=== PATIENT | male | born 1945 | race Two or more races ===

== ENCOUNTER 2019-07-23 22:14 | Inpatient (IN) | payer MEDICARE, OTHER ==
[~2019-07-23] VITALS: Ht 182.9 cm; Wt 68.0 kg
[2019-07-23 22:33] LABS: BASOPHILS # (AUTO) 0.1 /CMM (0.0-0.2); BASOPHILS % (AUTO) 0.5 % (0.0-2.0); EOSINOPHILS % (AUTO) 0.4 % (0.0-6.0); HEMATOCRIT 40 % (39-51); HEMOGLOBIN 12.5 g/dL (13.5-17.5); LYMPHOCYTES # (AUTO) 2.9 /CMM (0.8-4.8); MEAN CORPUSCULAR HGB CONC 31 g/dl (31.0-36.0); MEAN CORPUSCULAR VOLUME 75 fL (80-96); MONOCYTES # (AUTO) 1.8 /CMM (0.1-1.30); MONOCYTES % (AUTO) 9.1 % (2.0-12.0); NEUTROPHILS # (AUTO) 14.4 /CMM (1.8-8.9); PLATELET COUNT (AUTO) 196 /CMM (150-450); RED BLOOD CELL COUNT(AUTO) 5.34 MIL/uL (4.5-6.0); WHITE BLOOD COUNT (AUTO) 19.2 K/uL (4.3-11.0)
--- NOTE | 2019-07-23 22:34 | NUR ---
PT AAOX3. [id number]. C/O TACHYCARDIA - 114BPM AND CHEST CONGESTION - CRACKLES. PT PLACED ON MONITOR AND PULSE OX. VSS. PT SAT 96% ON ROOM AIR. LABS COLLECTED AND SENT TO LAB. BG 167. AWATITING OTHER MD ORDERS.
[2019-07-23 22:44] LABS: CALCIUM, SERUM 8.9 mg/dL (8.5-10.1); CARBON DIOXIDE 27 mmol/L (21-32); CHLORIDE 102 mmol/L (98-107); GLUCOSE 191 mg/dL (74-106); SODIUM SERUM 139 mmol/L (136-145); UREA NITROGEN, BLOOD 34 mg/dL (7-18)
--- NOTE | 2019-07-23 22:45 | NUR ---
INF SENT TO LAB
[2019-07-23] MEDS ORDERED: VANCOMYCIN 1 GM VIAL ONE (22:58)
[2019-07-23] MEDS ORDERED: PIPERACILLIN /TAZOBACTAM 3.375 G VIAL IV ONE (22:58)
[2019-07-23] MEDS ORDERED: VANCOMYCIN 1 GM in IV D5W 250 ML IV ONE (23:00)
[2019-07-23] MEDS ORDERED: PIPERACILLIN /TAZOBACTAM 3.375 G in IV D5W 50 ML IV ONE (23:00)
[2019-07-23 23:02] LABS: ALANINE AMINOTRANSFERASE 19 U/L (12-78); ALBUMIN 3.1 g/dL (3.4-5.0); ALKALINE PHOSPHATASE 70 U/L (46-116); ASPARTATE AMINOTRANSFERASE 11 U/L (15-37); B-TYPE NATRIURETIC PEPTIDE 365 PG/ML (0-125); BILIRUBIN,DIRECT 0.1 mg/dL (0.0-0.2); BILIRUBIN,TOTAL 0.6 mg/dL (0.2-1.0); TOTAL PROTEIN, SERUM 7.3 g/dL (6.4-8.2)
--- NOTE | 2019-07-23 23:02 | NUR ---
[employer] was paged for panel call
--- NOTE | 2019-07-23 23:18 | NUR ---
[email or web address] was paged again for panel call
--- NOTE | 2019-07-23 23:22 | NUR ---
called nursing sup for bed, waiting for bed assignment
[2019-07-23] MEDS ORDERED: SIMV20TA2 GT (23:46)
[2019-07-23] MEDS ORDERED: TYL2T GT (23:46)
[2019-07-23] MEDS ORDERED: BISA10SU61 RC (23:46)
[2019-07-23] MEDS ORDERED: GABA-534 GT (23:46)
[2019-07-23] MEDS ORDERED: FAMO-131 GT (23:46)
[2019-07-23] MEDS ORDERED: GLIM1TAB GT (23:46)
[2019-07-23] MEDS ORDERED: METF-442 GT (23:46)
[2019-07-23] MEDS ORDERED: NA P133E RC (23:46)
[2019-07-23] MEDS ORDERED: ACET325T53 GT (23:46)
[2019-07-23] MEDS ORDERED: LAMO100T2 GT (23:46)
[2019-07-23] MEDS ORDERED: LISI10TA5 GT (23:46)
--- NOTE | 2019-07-23 23:48 | NUR ---
Called to give report. Nurse will call back.
[2019-07-24] VITALS (14 sets, daily range): BP systolic 76–152; BP diastolic 45–76
--- NOTE | 2019-07-24 00:40 | NUR ---
REPORT GIVEN TO ESTEVAN COLLINS FOR MICKEY
[2019-07-24] MEDS ORDERED: IV NS 0.9% 1,000 ML IV PRN (01:29)
[2019-07-24] MEDS ORDERED: ALBUTEROL SULFATE 8 GM HFA.AER.AD IH PRN (01:30)
[2019-07-24] MEDS ORDERED: Z GUARD REMEDY 2 OZ OINT TP PRN (01:30)
[2019-07-24] MEDS ORDERED: AZITHROMYCIN 250 MG TABLET GT ONE (01:30)
--- NOTE | 2019-07-24 01:45 | NUR ---
PT TRANSFERED PER ACLS PROTOCOL
--- NOTE | 2019-07-24 01:55 | NUR ---
0155 ADMITTED FROM ER 74 YEAR OLD MALE VIA GURNEY, FOR TACHYCARDIA AND CHEST CONGESTION, AND SEPSIS. AWAKE ALERT AND ABLE TO RESPOND VERBALLY. NO SIGNS OF RESPIRATORY DISTRESS NOTED. NOTED WITH PRODUCTIVE COUGHING. VITAL SIGNS TAKEN FOLLOWS B/P 126/70, HR 110S, RR 22, T- 98.1 O2 SATURATION 98% ON ROOM AIR. ADMISSION CARE RENDERED. PEG TUBE INTACT. NOTED WITH EXCORIATION ON PERIANAL AREA. BILATERAL UPPER EXTREMITIES CONTRACTED. HOB ELEVATED FOR MAX OXYGENATION. CALL LIGHT PLACED WITHIN REACH. STRICT DROPLET PRECAUTION OBSERVED.
[2019-07-24] MEDS ORDERED: ONDANSETRON HCL/PF 4 MG/2 ML VIAL IVP PRN (02:00)
[2019-07-24 02:15] LABS: BASOPHILS # (AUTO) 0.1 /CMM (0.0-0.2); BASOPHILS % (AUTO) 0.6 % (0.0-2.0); EOSINOPHILS % (AUTO) 0.2 % (0.0-6.0); HEMATOCRIT 44 % (39-51); HEMOGLOBIN 13.8 g/dL (13.5-17.5); LYMPHOCYTES # (AUTO) 2.4 /CMM (0.8-4.8); LYMPHOCYTES % (AUTO) 11.7 % (20.0-44.0); MEAN CORPUSCULAR HGB CONC 32 g/dl (31.0-36.0); MEAN CORPUSCULAR VOLUME 76 fL (80-96); MONOCYTES # (AUTO) 1.7 /CMM (0.1-1.30); MONOCYTES % (AUTO) 8.3 % (2.0-12.0); NEUTROPHILS % (AUTO) 79.2 % (43.0-81.0); PLATELET COUNT (AUTO) 206 /CMM (150-450); RED BLOOD CELL COUNT(AUTO) 5.73 MIL/uL (4.5-6.0); WHITE BLOOD COUNT (AUTO) 20.2 K/uL (4.3-11.0)
[2019-07-24 02:22] LABS: CALCIUM, SERUM 9.2 mg/dL (8.5-10.1); CREATININE 1.3 mg/dL (0.6-1.3); POTASSIUM 4.1 mmol/L (3.5-5.1)
[2019-07-24 02:30] LABS: C-REACTIVE PROTEIN 5.2 mg/dL (0.0-0.9)
[2019-07-24 02:34] LABS: ALBUMIN 3.4 g/dL (3.4-5.0); BILIRUBIN,TOTAL 0.9 mg/dL (0.2-1.0)
[2019-07-24 02:36] LABS: D-DIMER 0.37 mg/L(FEU (0.17-0.50)
--- NOTE | 2019-07-24 02:38 | NUR ---
0238 DR SHAW WAS NOTIFIED OF PATIENT CONSTANT PRODUCTIVE COUGHING WITH HR IN THE 130S. ORDER FOR ROBITUSSIN 5ML EVERY 6 HOURS PRN OBTAINED. ORDER NOTED AND CARRIED OUT. DR. SHAW ALSO CLARIFIED ROUTE OF MEDICATIONS TO VIA PEG.
[2019-07-24] MEDS: ACETAMINOPHEN 325 MG TABLET PO PRN ×3 (02:53→16:31)
--- NOTE | 2019-07-24 02:53 | NUR ---
MACHINE FINISHER NOTES PT NOTED WITH SLIGHT TEMP 100.2 COOLING MEASURES DONE. TYLENOL GIVEN ORDERED. WILL CONTINUE TO MONITOR.
[2019-07-24] MEDS: GUAIFENESIN/D-METHORPHAN HB 5 ML UDC GT PRN (02:54)
--- NOTE | 2019-07-24 04:55 | NUR ---
PARADICHLOROBENZENE TENDER NOTES PT NOTED WITH LOW BP. NOTIFIED DR SHAW RE PT'S CONDITION. WITH NEW ORDERS TO UPGRADE TO JULY AND TO GIVE BOLUS NS 500ML X 1. ORDERS NOTED AND CARRIED OUT. WILL CONTINUE TO MONITOR.
[2019-07-24] MEDS ORDERED: PIPERACILLIN /TAZOBACTAM 3.375 G VIAL IV ONE (04:58)
[2019-07-24] MEDS ORDERED: ZOSYN IVPB 3.375 G in IV D5W 50ml IV ONE (05:00)
[2019-07-24] MEDS ORDERED: IV NS 0.9% 500 ML IV ONE (05:00)
--- NOTE | 2019-07-24 05:43 | NUR ---
JULY RN NOTES PT'S BP STILL LOW. PAGED DR SHAW CERTIFIED PARALEGAL FOR [employer]. AWAITING FOR RESPONSE.
--- NOTE | 2019-07-24 05:43 | NUR ---
JULY RN NOTES ELECTRICAL MECHANIC ACTIVATED. PT LETHARGIC, STILL NOTED WITH LOW BP.
--- NOTE | 2019-07-24 06:37 | NUR ---
JULY RN NOTES AWAKE & RESPONSIVE. NOT IN ANY DISTRESS. NO SOB NOTED. DENIES ANY PAIN OR DISCOMFORT AT THIS TIME. ON TELE ST @ 108 WITH IVF INFUSING WELL. MONITORED ACCORDINGLY. CALL LIGHT WITHIN REACH. BED IN LOWEST POSITION. SR UP X 3 WITH BED ALARM ON FOR SAFETY. WILL ENDORSE TO NEXT SHIFT.
--- NOTE | 2019-07-24 07:00 | NUR ---
RN NOTES RECEIVED PT ON BED, A/Ox2, ON 5L O2 N/C , NO DISTRESS NOTED, ORAL SUCTIONING DONE, O2 SAT WNL, ON TELE ST HR IN 110'S , GT CLAMPED AT THIS TIME, IV SITE ON R FA , G 20 CLEAN, DRY AND INTACT WITH NS AT 75CC/HR RUNNING , CALL LIGHT WITHIN REACH. BED LOCKED AND IN LOWEST POSITION. SR UP X 3 WITH BED ALARM ON FOR SAFETY. CONTINUE TO MONITOR CLOSELY .
[2019-07-24] MEDS ORDERED: FEE PK DOSING 1 MIN EA MC ONE (07:24)
[2019-07-24] MEDS ORDERED: INSU100V3 SQ (07:32)
[2019-07-24] MEDS ORDERED: MAGN400O6 GT (07:32)
[2019-07-24] MEDS ORDERED: AMIN30LI27 GT (07:32)
[2019-07-24] MEDS ORDERED: ASPI-1169 GT (07:32)
[2019-07-24] MEDS ORDERED: NUT.237L30 GT (07:32)
[2019-07-24] MEDS ORDERED: ACET-868 GT (07:32)
[2019-07-24] MEDS ORDERED: ACET-2605 GT ×2 (07:32)
[2019-07-24] MEDS: LamoTRIgine 25 MG TABLET GT SCH (08:08)
[2019-07-24] MEDS ORDERED: PANTOPRAZOLE 40 MG VIAL IV SCH (09:00)
[2019-07-24] MEDS: GLIMEPIRIDE 1 MG TABLET GT SCH (09:00)
[2019-07-24] MEDS ORDERED: LISINOPRIL (10MG) 10 MG TABLET GT SCH (09:00)
[2019-07-24] MEDS: METFORMIN 500 MG TABLET GT SCH ×2 (09:00→16:34)
[2019-07-24] MEDS: PIPERACILLIN /TAZOBACTAM 3.375 G in IV D5W 100 ML IV SCH ×2 (09:35→17:01)
[2019-07-24] MEDS ORDERED: GLUCERNA 1.2 1,000 ML BOTTLE NG PRN (11:30)
[2019-07-24] MEDS: VANCOMYCIN 0.75 GM in IV D5W 250 ML IV SCH ×2 (11:32→22:05)
--- NOTE | 2019-07-24 11:43 | NUR ---
RN NOTES T=101.3, DR COFFEY NOTIFED , TYLENOL GIVEN, CONTINUE TO MONITOR .
[2019-07-24] MEDS: GLUCERNA 1.2 1,000 ML BOTTLE NG PRN (11:57)
[2019-07-24] MEDS ORDERED: PIPERACILLIN /TAZOBACTAM 3.375 G in IV D5W 50 ML IV SCH (12:00)
--- NOTE | 2019-07-24 14:00 | NUR ---
RN NOTES T=98.1 , PT STABLE, CONTINUE TO MONITOR .
[2019-07-24] MEDS: IV NS 0.9% 1,000 ML IV PRN (17:11)
--- NOTE | 2019-07-24 17:26 | NUR ---
RN NOTES IN AND OUT CATH DONE, URINE SAMPLE SENT TO LAB PER ORDER .
[2019-07-24 17:45] LABS: APPEARANCE,URINE CLEAR (CLEAR); BILIRUBIN,URINE NEGATIVE (NEGATIVE); BLOOD, URINE NEGATIVE Ery/uL (NEGATIVE); COLOR,URINE YELLOW (YELLOW); KETONES,URINE NEGATIVE (NEGATIVE); LEUKOCYTE ESTERASE ,URINE NEGATIVE (NEGATIVE); NITRITE, URINE NEGATIVE (NEGATIVE); PROTEIN,URINE NEGATIVE (NEGATIVE); UGLUCOSE NEGATIVE (NEGATIVE); UROBILINOGEN,URINE 0.2 EU/dL (0.2)
--- NOTE | 2019-07-24 18:00 | NUR ---
RN NOTES VSS STABLE, TOLERATING TF WELL, NO DISTRESS NOTED, NS A 125CC/HR RUNNING VIA LEFT FA IV SITE , SR UP x3, CALL LIGHT WITHIN EASY REACH, BED LOCKED AND IN LOWEST POSITION, WILL ENDORSE TO TISSUE TECHNOLOGIST NURSE FOR CONTINUITY OF CARE .
[2019-07-24] MEDS: SIMVASTATIN 20 MG TABLET GT SCH (22:03)
[2019-07-25] VITALS: BP 101/54
[2019-07-25] MEDS: IV NS 0.9% 1,000 ML IV PRN ×2 (03:18→16:28)
[2019-07-25] MEDS: PIPERACILLIN /TAZOBACTAM 3.375 G in IV D5W 100 ML IV SCH ×3 (03:18→17:00)
[2019-07-25 04:00] VITALS: BP 102/53
[2019-07-25] MEDS: AZITHROMYCIN 250 MG TABLET GT SCH (05:48)
[2019-07-25 06:14] LABS: BASOPHILS # (AUTO) 0.1 /CMM (0.0-0.2); BASOPHILS % (AUTO) 0.4 % (0.0-2.0); EOSINOPHILS % (AUTO) 2.5 % (0.0-6.0); HEMATOCRIT 36 % (39-51); HEMOGLOBIN 11.1 g/dL (13.5-17.5); LYMPHOCYTES # (AUTO) 2.2 /CMM (0.8-4.8); LYMPHOCYTES % (AUTO) 16.7 % (20.0-44.0); MEAN CORPUSCULAR HGB CONC 31 g/dl (31.0-36.0); MEAN CORPUSCULAR VOLUME 76 fL (80-96); MONOCYTES # (AUTO) 0.9 /CMM (0.1-1.30); MONOCYTES % (AUTO) 6.5 % (2.0-12.0); NEUTROPHILS # (AUTO) 9.9 /CMM (1.8-8.9); NEUTROPHILS % (AUTO) 73.9 % (43.0-81.0); PLATELET COUNT (AUTO) 162 /CMM (150-450); RED BLOOD CELL COUNT(AUTO) 4.78 MIL/uL (4.5-6.0); WHITE BLOOD COUNT (AUTO) 13.4 K/uL (4.3-11.0)
[2019-07-25 06:41] LABS: ALBUMIN 2.4 g/dL (3.4-5.0); CREATININE 0.8 mg/dL (0.6-1.3); MAGNESIUM 2.1 mg/dL (1.8-2.4); PHOSPHORUS 2.2 mg/dL (2.5-4.9); POTASSIUM 3.9 mmol/L (3.5-5.1); TOTAL PROTEIN, SERUM 6.4 g/dL (6.4-8.2)
[2019-07-25 07:11] LABS: THYROID STIMULATING HORMONE 0.406 uIU/mL (0.358-3.74)
[2019-07-25 07:12] LABS: C-REACTIVE PROTEIN 11.2 mg/dL (0.0-0.9)
--- NOTE | 2019-07-25 07:15 | NUR ---
CORK PAINTER AND GRADER NOTES OPENING PATIENT IN BED AWAKE. A/OX2-3 WITH NO CLEAR CONVERSATION. NO SOB OR DISCOMFORT NOTED. NO RESIDUAL NOTED AT THE GT SITE. 2 IV ON RIGHT FOREARM PATENT AND RUNNING NS ON 125 ML /HR ON LOWER IV SITE. CALL LIGHT WITHIN REACH , BED AT THE LOWEST POSITION LOCKED. WILL CONTINUE TO MONITOR THE PATIENT.
[2019-07-25 08:00] VITALS: BP 110/53
[2019-07-25] MEDS: METFORMIN 500 MG TABLET GT SCH ×2 (08:08→16:36)
[2019-07-25] MEDS: GLIMEPIRIDE 1 MG TABLET GT SCH (08:08)
[2019-07-25] MEDS: LamoTRIgine 25 MG TABLET GT SCH (08:09)
[2019-07-25] MEDS ORDERED: NEUTRA PHOS 1 POWD.PACKET GT ONE (10:00)
[2019-07-25] MEDS: VANCOMYCIN 0.75 GM in IV D5W 250 ML IV SCH ×2 (11:52→23:01)
[2019-07-25] MEDS: ACETAMINOPHEN 325 MG TABLET PO PRN (11:53)
[2019-07-25 12:00] VITALS: BP 144/60
[2019-07-25 16:00] VITALS: BP_SYST 135; BP_SYST 150; BP_DIAS 64; BP_DIAS 75
[2019-07-25] MEDS: GLUCERNA 1.2 1,000 ML BOTTLE NG PRN (16:27)
--- NOTE | 2019-07-25 16:48 | NUR ---
SOCIAL PSYCHOLOGIST NOTES NOTIFIED DR COFFEY THAT PATIENT IS ON GLUCERNA AND NO SLIDING SCALES. PER DR COFFEY ORDER FOR MILD SLIDING SCALES.
[2019-07-25] MEDS ORDERED: DEXTROSE 50%-WATER 50 ML DISP.SYRIN IV PRN (17:00)
[2019-07-25] MEDS: BLOOD SUGAR DIAGNOSTIC 1 EACH STRIP IN SCH ×2 (17:50→23:57)
--- NOTE | 2019-07-25 17:54 | NUR ---
ROLLER REPAIRER NOTES PATIENT BG 81 MG/DL NO INSULIN WAS GIVEN PATIENT ON GLUCERNA 1.2 70ML/HR.
--- NOTE | 2019-07-25 19:00 | NUR ---
RN OPENING NOTES RECEIVED PATIENT IN BED AWAKE, A/OX2-3. DENIES ANY PAIN. ON TELE MONITOR SR WITH HR 90'S. ON ROOM AIR, NO SOB OR RESPIRATORY DISTRESS NOTED, SATURATING 96% AT THE MOMENT. IV SITE RIGHT FOREARM 20G FLUSHING AND PATENT, IVPB ZOSYN RUNNING AT 25ML/HR, TOLERATING WELL, NO INFILTRATION NOTED. SAFETY MEASURES IN PLACE; CALL LIGHT WITHIN REACH, BED LOCKED AND IN LOWEST POSITION, HOB ELEVATED, SIDE RAILS UP X2. ISOLATION PRECAUTIONS MAINTAINED. WILL CONTINUE TO MONITOR PATIENT CLOSELY. PER AM RN, PATIENT HAD 1 LOOSE STOOL/DIARRHEA TODAY AND FROM PREVIOUS DAY. CHARGE NURSE MADE AWARE. WILL COLLECT C.DIFF SPECIMEN PER PROTOCOL.
--- NOTE | 2019-07-25 19:09 | NUR ---
DRYING ROOM OPERATOR NOTES CLOSING PATIENT IN BED NO SOB OR DISCOMFORT NOTED. A/OX3-4 ABLE TO COMMUNICATE THE NEEDS. ALL NEEDS ATTENDED, MEDICATION ADMINISTRATED. 1 LOSE STOOL TODAY. NO RESIDUAL NOTED AT THE [employer] SITE. SON (FLIP) CONTACTED AND WAS GIVEN THE UPDATES ABOUT HIS FATHER. CALL LIGHT WITHIN REACH, BED AT THE LOWEST POSITION LOCKED. ENDORSED TO BRANNER MACHINE TENDER NURSE FOR MICKEY.
[2019-07-25 20:00] VITALS: BP 139/48
[2019-07-25] MEDS: SIMVASTATIN 20 MG TABLET GT SCH (22:40)
[2019-07-26] VITALS: BP 156/74
[2019-07-26] MEDS: PIPERACILLIN /TAZOBACTAM 3.375 G in IV D5W 100 ML IV SCH ×3 (01:50→18:07)
[2019-07-26] MEDS: IV NS 0.9% 1,000 ML IV PRN ×3 (01:55→22:57)
[2019-07-26 04:00] VITALS: BP 155/83
[2019-07-26] MEDS: GLUCERNA 1.2 1,000 ML BOTTLE NG PRN ×2 (05:00→19:24)
[2019-07-26] MEDS: AZITHROMYCIN 250 MG TABLET GT SCH (05:00)
[2019-07-26] MEDS: BLOOD SUGAR DIAGNOSTIC 1 EACH STRIP IN SCH ×4 (05:45→23:15)
[2019-07-26] MEDS: INSULIN REGULAR, HUMAN 100 UNIT/ML 3 ML VIAL SQ PRN ×4 (05:47→23:17)
--- NOTE | 2019-07-26 06:33 | NUR ---
RN CLOSING NOTES PATIENT IN BED AWAKE, A/OX2-3. DENIES ANY PAIN. ON TELE MONITOR SR WITH HR 90'S. ON ROOM AIR, NO SOB OR RESPIRATORY DISTRESS NOTED, SATURATING 95% AT THE MOMENT. IV SITES RIGHT FOREARM 20G AND 22G BOTH FLUSHING AND PATENT, IVF RUNNING ORDERED, TOLERATING WELL, NO INFILTRATION NOTED. CONDOM CATH INTACT AND DRAINING WELL. SAFETY MEASURES IN PLACE; CALL LIGHT WITHIN REACH, BED LOCKED AND IN LOWEST POSITION, HOB ELEVATED, SIDE RAILS UP X2. ISOLATION PRECAUTIONS MAINTAINED. ALL MD ORDERS ATTENDED. WILL ENDORSE TO AM RN FOR MICKEY.
[2019-07-26 08:00] VITALS: BP 142/66
--- NOTE | 2019-07-26 08:00 | NUR ---
rn note pt refused morning lab drawx2, teaching about risks and benefits provided, still refused, pt is very sensitive, and withdraws from needle sticks and unable to tolerate.
[2019-07-26] MEDS: GLIMEPIRIDE 1 MG TABLET GT SCH (08:43)
[2019-07-26] MEDS: LamoTRIgine 25 MG TABLET GT SCH (08:43)
[2019-07-26] MEDS: METFORMIN 500 MG TABLET GT SCH ×2 (09:00→18:03)
--- NOTE | 2019-07-26 09:00 | NUR ---
rn note metformin dose held due to pending CT scan.
[2019-07-26] MEDS: VANCOMYCIN 0.75 GM in IV D5W 250 ML IV SCH ×2 (11:10→22:57)
[2019-07-26 12:00] VITALS: BP_SYST 137; BP_SYST 159; BP_DIAS 62; BP_DIAS 73
--- NOTE | 2019-07-26 14:43 | NUR ---
rn note attempted to convince pt to have blood drawn for lab but refused, pt stating, "I will not give any more blood, I think I'm okay". risks ans reason explained, pt still refused.
[2019-07-26 16:00] VITALS: BP_SYST 156; BP_SYST 159; BP_DIAS 73
--- NOTE | 2019-07-26 19:30 | NUR ---
RN OPENING NOTES: RECEIVED BEDSIDE REPORT FROM AM NURSE. PATIENT IN BED, AWAKE, AND VERBALLY RESPONSIVE. AAOX2-3. NO C/O PAIN. ON RA, TOLERATING WELL, O2 SAT 98%. ON GTF, NO RESIDUAL. HOB ELEVATED. WILL TURN AND REPOSITION PER PROTOCOL. ON MARKETING DATA SPECIALIST, NSR, HR 90s. CONDOM CATH IN PLACE, DRAINING CLEAR YELLOW URINE. PATIENT HAS RIGHT FA G22 AND RIGHT WRIST G22; ALL IV SITES C/D/I. ON NS AT 125 MLS/HR. CONTACT PRECAUTIONS IMPLEMENTED. CALL LIGHT PLACED WITHIN REACH. WILL CONT. TO MONITOR.
[2019-07-26 20:00] VITALS: BP 109/57
--- NOTE | 2019-07-26 22:00 | NUR ---
RN NOTE: PATIENT ROUNDING DONE. PATIENT IN NO ACUTE DISTRESS. NO BM NOTED AT THIS TIME. WILL CONT. TO MONITOR.
[2019-07-26] MEDS: SIMVASTATIN 20 MG TABLET GT SCH (22:30)
[2019-07-27] VITALS: BP 139/70
[2019-07-27 00:01] VITALS: BP 139/70
[2019-07-27] MEDS: PIPERACILLIN /TAZOBACTAM 3.375 G in IV D5W 100 ML IV SCH ×2 (01:56→10:01)
[2019-07-27 04:00] VITALS: BP 144/74
[2019-07-27] MEDS: AZITHROMYCIN 250 MG TABLET GT SCH (05:07)
[2019-07-27] MEDS: GUAIFENESIN/D-METHORPHAN HB 5 ML UDC GT PRN ×2 (05:07→16:07)
[2019-07-27] MEDS: BLOOD SUGAR DIAGNOSTIC 1 EACH STRIP IN SCH ×3 (06:04→17:37)
[2019-07-27] MEDS: INSULIN REGULAR, HUMAN 100 UNIT/ML 3 ML VIAL SQ PRN (06:07)
[2019-07-27 06:29] LABS: BASOPHILS # (AUTO) 0.1 /CMM (0.0-0.2); BASOPHILS % (AUTO) 0.6 % (0.0-2.0); EOSINOPHILS % (AUTO) 10.5 % (0.0-6.0); HEMATOCRIT 35 % (39-51); HEMOGLOBIN 11.1 g/dL (13.5-17.5); LYMPHOCYTES % (AUTO) 19.6 % (20.0-44.0); MEAN CORPUSCULAR HGB CONC 32 g/dl (31.0-36.0); MEAN CORPUSCULAR VOLUME 76 fL (80-96); MONOCYTES # (AUTO) 0.7 /CMM (0.1-1.30); NEUTROPHILS # (AUTO) 6.4 /CMM (1.8-8.9); NEUTROPHILS % (AUTO) 62.3 % (43.0-81.0); PLATELET COUNT (AUTO) 175 /CMM (150-450); RED BLOOD CELL COUNT(AUTO) 4.65 MIL/uL (4.5-6.0); WHITE BLOOD COUNT (AUTO) 10.3 K/uL (4.3-11.0)
--- NOTE | 2019-07-27 06:40 | NUR ---
RN CLOSING NOTES: PATIENT IN BED, AWAKE, AND VERBALLY RESPONSIVE. AAOX2-3. NO C/O PAIN. ON RA, TOLERATING WELL, O2 SAT >95%. ON GTF, NO RESIDUAL. HOB ELEVATED. ON ADULT CARE MANAGER, NSR, HR 80-90s. CONDOM CATH IN PLACE, DRAINING CLEAR YELLOW URINE. PATIENT HAS RIGHT FA G22 AND RIGHT HAND G22; ALL IV SITES C/D/I. ON NS AT 125 MLS/HR. CONTACT PRECAUTIONS IMPLEMENTED. CALL LIGHT PLACED WITHIN REACH. WILL ENDORSE TO AM SHIFT NURSE FOR CONTINUITY OF CARE.
[2019-07-27 06:46] LABS: CALCIUM, SERUM 8.2 mg/dL (8.5-10.1); CREATININE 0.8 mg/dL (0.6-1.3); MAGNESIUM 1.9 mg/dL (1.8-2.4); PHOSPHORUS 2.5 mg/dL (2.5-4.9); POTASSIUM 4.2 mmol/L (3.5-5.1)
[2019-07-27] MEDS: IV NS 0.9% 1,000 ML IV PRN (06:55)
[2019-07-27 08:00] VITALS: BP 160/74
[2019-07-27] MEDS: ACETAMINOPHEN 325 MG TABLET PO PRN (08:04)
[2019-07-27] MEDS: METFORMIN 500 MG TABLET GT SCH ×2 (08:04→16:04)
[2019-07-27] MEDS: GLIMEPIRIDE 1 MG TABLET GT SCH (08:04)
[2019-07-27] MEDS: LamoTRIgine 25 MG TABLET GT SCH (08:04)
[2019-07-27] MEDS: GLUCERNA 1.2 1,000 ML BOTTLE NG PRN (11:38)
[2019-07-27] MEDS: VANCOMYCIN 0.75 GM in IV D5W 250 ML IV SCH (11:38)
[2019-07-27 16:00] VITALS: BP 176/86
[2019-07-27] MEDS ORDERED: hydrALAZINE HCL 25 MG TABLET GT PRN (16:00)
[2019-07-27] MEDS: LISINOPRIL (10MG) 10 MG TABLET GT SCH (16:05)
--- NOTE | 2019-07-27 19:15 | NUR ---
MS/RN OPENING NOTE RECEIVED PATIENT A/O X2 PATIENT IS ABLE TO STATE NAME AND YEAR. CURRENTLY PATIENT DOES NOT SHOW ANY SIGN OF DISTRESS. PATIENT IS ON ROOM AIR SATURATING AT 94% WITH NO SIGN OF ANY SOB. GTUBE IS PATENT WITH FEEDING OF GLUCERNA RUNNING AT 70CC/HR WITH NO RESIDUAL. PATIENT HAS RFA #22, R HAND #22 BOTH PATENT WITH TKO INFUSING. ALL SAFETY PRECAUTIONS APPLIED. CALL LIGHT WITHING REACH WILL CONTINUE TO MONITOR PATIENT THROUGHOUT SHIFT.
[2019-07-27 20:00] VITALS: BP 146/82
[2019-07-27] MEDS: SIMVASTATIN 20 MG TABLET GT SCH (21:48)
[2019-07-28] MEDS: INSULIN REGULAR, HUMAN 100 UNIT/ML 3 ML VIAL SQ PRN ×3 (00:41→12:17)
[2019-07-28] MEDS: BLOOD SUGAR DIAGNOSTIC 1 EACH STRIP IN SCH ×3 (00:44→11:55)
[2019-07-28 04:00] VITALS: BP 149/81
[2019-07-28] MEDS: GLUCERNA 1.2 1,000 ML BOTTLE NG PRN (06:01)
[2019-07-28] MEDS: AZITHROMYCIN 250 MG TABLET GT SCH (06:02)
[2019-07-28 06:21] LABS: BASOPHILS # (AUTO) 0.1 /CMM (0.0-0.2); BASOPHILS % (AUTO) 0.5 % (0.0-2.0); HEMATOCRIT 38 % (39-51); HEMOGLOBIN 11.9 g/dL (13.5-17.5); LYMPHOCYTES % (AUTO) 19.3 % (20.0-44.0); MEAN CORPUSCULAR HGB CONC 31 g/dl (31.0-36.0); MEAN CORPUSCULAR VOLUME 75 fL (80-96); MONOCYTES # (AUTO) 0.6 /CMM (0.1-1.30); MONOCYTES % (AUTO) 6.1 % (2.0-12.0); NEUTROPHILS # (AUTO) 6.6 /CMM (1.8-8.9); NEUTROPHILS % (AUTO) 64.1 % (43.0-81.0); PLATELET COUNT (AUTO) 207 /CMM (150-450); RED BLOOD CELL COUNT(AUTO) 5.02 MIL/uL (4.5-6.0); WHITE BLOOD COUNT (AUTO) 10.2 K/uL (4.3-11.0)
[2019-07-28 06:36] LABS: CALCIUM, SERUM 8.9 mg/dL (8.5-10.1); CREATININE 0.8 mg/dL (0.6-1.3); PHOSPHORUS 2.6 mg/dL (2.5-4.9); POTASSIUM 4.2 mmol/L (3.5-5.1)
--- NOTE | 2019-07-28 07:20 | NUR ---
MS/RN CLOSING PATIENT IN BED WITH NO SIGN OF ANY DISTRESS. PATIENT TOLERATING ON ROOM AIR SAT AT 95% NO COMPLAINTS OF ANY SOB. GTUBE FEEDING OF GLUCERNA RUNNING AT 70CC/ML. ALL SAFETY PRECAUTIONS APPLIED. ENDORSED PATIENT TO MORNING SHIFT NURSE FOR MICKEY.
--- NOTE | 2019-07-28 07:30 | NUR ---
MS RN OPENING NOTE Received patient awake in bed hob elevated. Appears calm and relaxed. No co pain or discomfort. On room air tolerating well. Patient is AO x3. Patient has a GT, Glucerna 1.2 running at 70cc/hr. No residual. Bowel sounds present in all four quadrants. Patient has a condom catheter in place draining clear yellow urine. Patient is noted with productive cough. Suction as needed. Awaiting result for C-Diff evaluation. Will continue to monitor.
[2019-07-28 08:00] VITALS: BP 158/79
[2019-07-28] MEDS: METFORMIN 500 MG TABLET GT SCH (08:57)
[2019-07-28] MEDS: LamoTRIgine 25 MG TABLET GT SCH (08:57)
[2019-07-28] MEDS: GLIMEPIRIDE 1 MG TABLET GT SCH (08:58)
[2019-07-28] MEDS: LISINOPRIL (10MG) 10 MG TABLET GT SCH (08:58)
--- NOTE | 2019-07-28 09:33 | NUR ---
WOUND CARE CONSULT: PT PRESENTS WITH SACRAL SCAR, LEFT UPPER EXTREMITY CONTRACTURE AND INCONTINENCE, PRESENT ON ADMISSION. RECOMMENDATIONS MADE FOR SKIN PROTECTION. DISCUSSED WITH NURSING STAFF. WILL SEE PRN. ISOFLEX LOW AIRLOSS BED TO BE PLACED. IN AGREEMENT WITH PLAN OF CARE. Addendum: 07/28/19 at 0934 by PATRICK ALVES WNDNU Amended: Links added.
[2019-07-28 12:00] VITALS: BP 130/79
[2019-07-28 16:00] VITALS: BP 144/74
--- NOTE | 2019-07-28 16:37 | NUR ---
CONTINUING EDUCATION DEAN NOTE Patient was picked up by 2 solar lab technician from [facility] in stable condition. GT feeding was removed. RFA and R hand peripheral IV line was removed. No bleeding noted. No co pain or discomfort. Patient is in stable condition. Kept clean and dry. Gave discharge instructions. All needs met. Discard all tubings and feedings per protocol.
[2019-10-03] MEDS ORDERED: Ipratropium/Albuterol Sulfate IH (15:54)
[2019-10-03] MEDS ORDERED: PIPE3.376 IV (15:54)
[2019-10-03] MEDS ORDERED: VANC750F2 IV (15:54)
== END 2019-07-28 17:00 | DRG 871 ==
LOC: ER 22:14 → TELE1 23:36 → TELE-TD 07-24 05:01 → TELE1 07-24 20:25 → MEDSG1 07-27 10:49
PROVIDERS: ADMIT Student in an Organized Health Care Education/Training Program; ATTEND Student in an Organized Health Care Education/Training Program
DX: A41.9 Sepsis, unspecified organism (principal); J18.9 Pneumonia, unspecified organism; E87.2 Acidosis; J98.11 Atelectasis; J21.9 Acute bronchiolitis, unspecified; I50.9 Heart failure, unspecified; I11.0 Hypertensive heart disease with heart failure; I25.10 Atherosclerotic heart disease of native coronary artery without angina pectoris; F02.80 Dementia in other diseases classified elsewhere, unspecified severity, without behavioral disturbance, psychotic disturbance, mood disturbance, and anxiety; G30.9 Alzheimer's disease, unspecified; E86.0 Dehydration; E78.5 Hyperlipidemia, unspecified; K21.9 Gastro-esophageal reflux disease without esophagitis; E11.36 Type 2 diabetes mellitus with diabetic cataract; E11.42 Type 2 diabetes mellitus with diabetic polyneuropathy; Z93.1 Gastrostomy status; R13.10 Dysphagia, unspecified; Z74.01 Bed confinement status; I70.0 Atherosclerosis of aorta
CPT/HCPCS: 36415; 71045-TC; 71250-TC; 80048-TC; 80053-TC; 80061-TC; 80076-TC; 80202-TC; 81000-TC; 82550-TC; 82728-TC; 82962-TC; 83605-TC; 83615-TC; 83735-TC; 83880; 84100-TC; 84443-TC; 84484-TC; 85025-TC; 85378-TC; 85385-TC; 85652-TC; 85730-TC; 86140-TC; 87040-TC; 87070-TC; 87081-TC; 87086-TC; 93307-TC; A4349; A6403; G0378; J1815; J2543; J3370; J7030; J7050; J7060

== ENCOUNTER 2019-09-29 10:05 | Inpatient (IN) | payer MEDICARE, OTHER ==
[~2019-09-29] VITALS: Ht 182.9 cm; Wt 66.7 kg
[~2019-09-29 10:05] MED LIST: ACET-2605 GT; ACET-868 GT; AMIN30LI27 GT; ASPI-1169 GT; BISA10SU61 RC; FAMO-131 GT; GABA-534 GT; GLIM1TAB GT; INSU100V3 SQ; LAMO100T2 GT; LISI10TA5 GT; MAGN400O6 GT; NA P133E RC; NUT.237L30 GT; SIMV20TA2 GT
--- NOTE | 2019-09-29 10:08 | NUR ---
pt bibra from snf to er bed 08. per ems report, noted 02 desaturation at 80's room air, pt is already tested positive for covid 19. 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 placed on monitor, tachy, placed on 02@4L/MIN AND SATTING AT 97%. awaiting md luz.
--- NOTE | 2019-09-29 10:11 | NUR ---
dr montes at bedside for eval.
--- NOTE | 2019-09-29 10:15 | NUR ---
iv lie started blood drawn and sent to lab.
[2019-09-29] MEDS ORDERED: ACETAMINOPHEN 650 MG/SUPP.RECT RC ONE ×2 (10:22→10:30)
--- NOTE | 2019-09-29 10:24 | NUR ---
CALLED 4 [facility] TO FAX OVER POLST FORM.
[2019-09-29 10:26] LABS: BILIRUBIN,URINE Negative (NEGATIVE); BLOOD, URINE Trace-intact Ery/uL (NEGATIVE); COLOR,URINE Yellow (YELLOW); KETONES,URINE Negative (NEGATIVE); LEUKOCYTE ESTERASE ,URINE Negative (NEGATIVE); NITRITE, URINE Negative (NEGATIVE); PROTEIN,URINE >=300 mg/dl (NEGATIVE); UGLUCOSE 500 MG/DL mg/dL (NEGATIVE)
[2019-09-29 10:27] LABS: BASOPHILS # (AUTO) 0.1 /CMM (0.0-0.2); BASOPHILS % (AUTO) 0.4 % (0.0-2.0); EOSINOPHILS % (AUTO) 0.1 % (0.0-6.0); HEMATOCRIT 42 % (39-51); HEMOGLOBIN 13.2 g/dL (13.5-17.5); LYMPHOCYTES # (AUTO) 1.4 /CMM (0.8-4.8); LYMPHOCYTES % (AUTO) 10.6 % (20.0-44.0); MEAN CORPUSCULAR HGB CONC 31 g/dl (31.0-36.0); MEAN CORPUSCULAR VOLUME 79 fL (80-96); MONOCYTES # (AUTO) 1.7 /CMM (0.1-1.30); MONOCYTES % (AUTO) 12.8 % (2.0-12.0); NEUTROPHILS % (AUTO) 76.1 % (43.0-81.0); PLATELET COUNT (AUTO) 149 /CMM (150-450); RED BLOOD CELL COUNT(AUTO) 5.38 MIL/uL (4.5-6.0); WHITE BLOOD COUNT (AUTO) 13.2 K/uL (4.3-11.0)
[2019-09-29] MEDS ORDERED: IV NS 0.9% 500 ML BAG IV ONE (10:30)
[2019-09-29 10:42] LABS: APPEARANCE,URINE SLIGHTLY CLOUDY (CLEAR)
[2019-09-29 10:43] LABS: BACTERIA,URINE None seen /HPF (None Seen); SQUAMOUS EPITHELIAL CELL,UR Few /HPF (None Seen); WBC,URINE 0-2 /HPF (0-3)
[2019-09-29 10:44] LABS: URINE AMORPHOUS URATE Many /HPF (None Seen)
[2019-09-29 10:48] LABS: ALANINE AMINOTRANSFERASE 23 U/L (12-78); ALBUMIN 2.6 g/dL (3.4-5.0); ALKALINE PHOSPHATASE 66 U/L (46-116); ASPARTATE AMINOTRANSFERASE 34 U/L (15-37); B-TYPE NATRIURETIC PEPTIDE 340 PG/ML (0-125); BILIRUBIN,TOTAL 0.8 mg/dL (0.2-1.0); CALCIUM, SERUM 8.3 mg/dL (8.5-10.1); CARBON DIOXIDE 29 mmol/L (21-32); CHLORIDE 112 mmol/L (98-107); CREATININE 1.4 mg/dL (0.6-1.3); POTASSIUM 4.6 mmol/L (3.5-5.1); SODIUM SERUM 148 mmol/L (136-145); TOTAL PROTEIN, SERUM 7.7 g/dL (6.4-8.2); UREA NITROGEN, BLOOD 47 mg/dL (7-18)
--- NOTE | 2019-09-29 10:50 | NUR ---
sirena Villalba [phone]
[2019-09-29 10:52] LABS: GLUCOSE 499 mg/dL (74-106)
--- NOTE | 2019-09-29 11:10 | NUR ---
PANEL ON-CALL PAGED
[2019-09-29] MEDS ORDERED: INSULIN REGULAR, HUMAN 100 UNIT/ML 10 ML VIAL ONE (11:22)
[2019-09-29] MEDS ORDERED: INSULIN REGULAR, HUMAN 100 UNIT/ML 10 ML VIAL SQ ONE (11:30)
[2019-09-29] MEDS ORDERED: ZINC220C6 GT (11:38)
[2019-09-29] MEDS ORDERED: ERGO400C GT (11:38)
[2019-09-29] MEDS ORDERED: METF-442 GT (11:38)
[2019-09-29] MEDS ORDERED: AMIN887L GT (11:38)
[2019-09-29] MEDS ORDERED: POLY17PO4 GT (11:38)
[2019-09-29] MEDS ORDERED: CRAN3875 GT (11:38)
[2019-09-29] MEDS ORDERED: MULT-447 GT (11:38)
[2019-09-29] MEDS ORDERED: ASCO500T20 GT (11:38)
--- NOTE | 2019-09-29 11:41 | NUR ---
called nursing supervisor electronic coils for a JULY bed
[2019-09-29 11:42] LABS: D-DIMER 0.91 mg/L(FEU (0.17-0.50)
[2019-09-29 11:46] LABS: CREATINE KINASE, TOTAL 77 U/L (39-308); FERRITIN 97 ng/mL (8-388)
--- NOTE | 2019-09-29 12:15 | NUR ---
NURSING SUP GAVE JULY BED 104.
[2019-09-29] MEDS ORDERED: IV NS 0.9% 1,000 ML IV PRN (12:18)
--- NOTE | 2019-09-29 12:23 | NUR ---
rectal temp recheck 100.4
[2019-09-29] MEDS ORDERED: MAGNESIUM HYDROXIDE 30 ML UDC PO PRN (12:30)
[2019-09-29] MEDS ORDERED: ACETAMINOPHEN 325 MG TABLET PO PRN (12:30)
[2019-09-29] MEDS ORDERED: Z GUARD REMEDY 2 OZ OINT TP PRN (12:30)
[2019-09-29] MEDS ORDERED: ONDANSETRON HCL/PF 4 MG/2 ML VIAL IVP PRN (12:30)
[2019-09-29] MEDS ORDERED: IV NS 0.9% 1,000 ML BAG IV ONE (12:30)
[2019-09-29] MEDS ORDERED: BISACODYL SUPP (10 MG) 10 MG/SUPP.RECT SUPP.RECT RC PRN (12:30)
[2019-09-29] MEDS ORDERED: MAG HYDROX/AL HYDROX/SIMETH 30 ML UDC PO PRN (12:30)
--- NOTE | 2019-09-29 12:48 | NUR ---
report given to ehsan ponce at [facility]. awaiting transfer to floor.
[2019-09-29] MEDS ORDERED: DEXTROSE 50%-WATER 50 ML DISP.SYRIN IV PRN ×2 (13:00→19:00)
--- NOTE | 2019-09-29 13:10 | NUR ---
RN ADMITTING NOTES ADMITTED A 74 YEARS OLD, M, ACCOMPANIED BY E.R NURSE, A/O X0, CONFUSED AND NONVERBAL, EASILY AROUSABLE. ON OXYGEN 2LPM VIA NC, TOLERATING WELL, NO SIGNS OF DISTRESS NOTED AT THIS TIME, NOTED WITH GTUBE WITH NO RSV. SKIN ASSESSMENT WAS DONE, PHOTOS TAKEN AND FILED ON CHART. V/S TAKEN AND RECORDED. IV ACCESS ON RFA#18, PATENT AND INTACT. IVF TO BE STARTED. SAFETY MEASURES INITIATED, BED PLACED IN LOW LOCKED POSITION WITH SIDE RAILS UP X2. CALL LIGHT PLACED WITHIN EASY REACH. WILL CONTINUE TO MONITOR.
[2019-09-29 13:17] LABS: ABG BASE EXCESS -2.4 mmol/L; ABG OXYGEN SATURATION 95.1 % (92.0-98.5); ABG PCO2 45.4 mmHg (35.0-45.0); ABG PH 7.334 (7.350-7.450); ABG PO2 84.4 mmHg (75.0-100.0); AaDO2 32.7 mmHg; COHb 0.3 % (0.5-1.5); MetHb 0.3 % (0.0-1.5); O2Hb 94.5 % (94.0-97.0); SITE, ABG Right Radial; VENT MODE, BG NC 1 L
[2019-09-29] MEDS ORDERED: FEE PK DOSING 1 MIN EA MC ONE (13:22)
[2019-09-29] MEDS: CHOLECALCIFEROL 1,000 UNIT TABLET (VIT D3) GT SCH (14:00)
[2019-09-29] MEDS: LamoTRIgine 25 MG TABLET PO SCH (14:00)
[2019-09-29] MEDS: GABAPENTIN 300 MG CAPSULE GT SCH ×2 (14:00→16:46)
[2019-09-29] MEDS: ENOXAPARIN SODIUM 40 MG/0.4 ML DISP.SYRIN SQ SCH (14:07)
[2019-09-29] MEDS: PIPERACILLIN /TAZOBACTAM 3.375 G in IV D5W 50 ML IV SCH ×2 (14:08→20:15)
[2019-09-29] MEDS: VANCOMYCIN 1 GM in IV D5W 250 ML IV SCH (14:53)
[2019-09-29 15:15] LABS: BILIRUBIN,DIRECT 0.2 mg/dL (0.0-0.2)
[2019-09-29 16:00] VITALS: BP 105/58
--- NOTE | 2019-09-29 17:00 | NUR ---
RN NOTES NO FEEDING PUMP AVAILABLE, CALLED [facility] THEY SAID THEY WILL TRY TO FIND ONE, WILL F/U AND MONITOR.
[2019-09-29] MEDS: BLOOD SUGAR DIAGNOSTIC 1 EACH STRIP IN SCH ×2 (17:01→21:32)
[2019-09-29] MEDS: INSULIN REGULAR, HUMAN 100 UNIT/ML 3 ML VIAL SQ PRN ×2 (17:05→21:35)
--- NOTE | 2019-09-29 17:20 | NUR ---
RN NOTES BS OF 474, MD NOTIFIED AWAITING FOR RESPONSE. WILL CONTINUE TO MONITOR.
--- NOTE | 2019-09-29 17:28 | NUR ---
RN NOTES CALLED PHARMACY REGARDING COMBIVENT INHALER, PER JAIME, PHARMACIST IT'S ON THEIR WAY, WILL F/U AND MONITOR.
[2019-09-29] MEDS ORDERED: GLUCERNA 1.5 1,000 ML BOTTLE NG PRN (18:00)
[2019-09-29] MEDS: IPRATROPIUM/ALBUTEROL INHALER IH SCH ×2 (18:31→20:15)
--- NOTE | 2019-09-29 18:37 | NUR ---
RN NOTES PATIENT IN BED RESTING COMFORTABLY IN MODERATE HIGH BACK REST, A/O X0, CONFUSED AND NONVERBAL, EASILY AROUSABLE. ON TELE MONITOR WITH CURRENT READING OF SR HR OF 90'S, ON OXYGEN 2LPM VIA NC, TOLERATING WELL, NO SIGNS OF DISTRESS NOTED THROUGHOUT THE SHIFT, NOTED WITH FC, DRAINING FREELY WITH CLEAR YELLOW URINE. PAGED SOCRATES KLINE REGARDING BS OF 474, STILL AWAITING FOR RESPONSE. IV FLUIDS ON RFA#18 WITH NS RUNNING @75ML/HR, PATENT AND INTACT. SAFETY MEASURES IN PLACE, BED PLACED IN LOW LOCKED POSITION WITH SIDE RAILS UP X2. CALL LIGHT PLACED WITHIN EASY REACH. WILL ENDORSE TO MANAGER STORY NURSE FOR MICKEY.
--- NOTE | 2019-09-29 18:56 | NUR ---
RN NOTES SOCRATES KLINE ORDER FOR SLIDING SCALE TO MODERATE, WILL CONTINUE TO MONITOR.
--- NOTE | 2019-09-29 19:15 | NUR ---
TD/ OPENING NOTE RECEIVED PATIENT IN BED. LETHARGIC DIFFICULT TO AROUSE. STERNAL RUB PERFORMED WITH ONLY MINIMAL EYE RESPONSE ASSESSED. PATIENT HAD MINIMAL UPPER EXTREMITY MOVEMENT. PATIENT IS ON 2L NASAL CANNULA SATURATING AT 97% CONGESTION WAS HEARD BUT NO SIGN OF RESPIRATORY DISTRESS. RESPIRATIONS EVEN AND UNLABORED. PUPILS EQUAL AND REACTIVE TO LIGHT. FLACCID EXTREMITIES NOTED. RFA # 18 PATENT WITH NS RUNNING AT 75CC/HR. FC DRAINING VIA GRAVITY WITH YELLOW URINE OUTPUT NOTED. GTUBE PATENT AND FEEDING STARTED AT 30CC/HR. BED ALARM ON FOR PRECAUTIONS. ALL SAFETY PRECAUTIONS APPLIED. WILL CONTINUE TO MONITOR PATIENT THROUGHOUT SHIFT.
[2019-09-29 20:00] VITALS: BP_SYST 109; BP_SYST 98; BP_DIAS 51; BP_DIAS 59
[2019-09-29 20:20] VITALS: BP 98/51
[2019-09-29] MEDS: BLOOD SUGAR DIAGNOSTIC 1 EACH STRIP VI SCH (21:33)
--- NOTE | 2019-09-29 21:58 | NUR ---
patient complaining of chest pain on a scale of 8 peeling pressure. contacted cement mason Andonian. ORDERS RECEIVED FOR STAT TROPONIN BLOOD DRAW AND NITRO SL 0.4MG. WILL CONTINUE TO MONITOR. Addendum: 09/29/19 at 2206 by SIMONE WOMACK RN PLEASE DISREGARD. INCORRECT PATIENT
[2019-09-30] VITALS (8 sets, daily range): BP systolic 106–136; BP diastolic 54–77
[2019-09-30] MEDS: IPRATROPIUM/ALBUTEROL INHALER IH SCH ×2 (01:30→21:57)
[2019-09-30] MEDS: PIPERACILLIN /TAZOBACTAM 3.375 G in IV D5W 50 ML IV SCH ×4 (01:45→19:32)
--- NOTE | 2019-09-30 02:08 | NUR ---
UNABLE TO ADMINISTER ALBUTEROL INHALER DUE TO PATIENT'S ALTERED LOC. NO SIGN OF SOB. PATIENT SATURATING AT 97%.
[2019-09-30 06:29] LABS: CALCIUM, SERUM 7.5 mg/dL (8.5-10.1); MAGNESIUM 2.6 mg/dL (1.8-2.4); PHOSPHORUS 3.1 mg/dL (2.5-4.9); POTASSIUM 3.8 mmol/L (3.5-5.1)
[2019-09-30 06:34] LABS: THYROID STIMULATING HORMONE 0.415 uIU/mL (0.358-3.74)
[2019-09-30 06:39] LABS: BASOPHILS % (AUTO) 0.4 % (0.0-2.0); EOSINOPHILS % (AUTO) 0.2 % (0.0-6.0); HEMATOCRIT 38 % (39-51); HEMOGLOBIN 11.6 g/dL (13.5-17.5); LYMPHOCYTES # (AUTO) 1.5 /CMM (0.8-4.8); LYMPHOCYTES % (AUTO) 13.8 % (20.0-44.0); MEAN CORPUSCULAR HGB CONC 30 g/dl (31.0-36.0); MEAN CORPUSCULAR VOLUME 78 fL (80-96); MONOCYTES % (AUTO) 8.8 % (2.0-12.0); NEUTROPHILS # (AUTO) 8.5 /CMM (1.8-8.9); NEUTROPHILS % (AUTO) 76.8 % (43.0-81.0); PLATELET COUNT (AUTO) 107 /CMM (150-450); RED BLOOD CELL COUNT(AUTO) 4.91 MIL/uL (4.5-6.0); WHITE BLOOD COUNT (AUTO) 11.1 K/uL (4.3-11.0)
--- NOTE | 2019-09-30 06:49 | NUR ---
TD/CLOSING PATIENT MORE ALERT THAN WHEN WAS RECEIVED. PATIENT IS ABLE TO FOLLOW COMMANDS. ABLE TO SQUEEZE WITH RIGHT HAND AND HAS MOVEMENT ON ARM. IS ABLE TO TRACE WITH EYES AND COMMUNICATED BY NODDING FOR YES OR NO. PATIENT CONTINUES ON 2L OF 02 NC SATURATING AT 99% WITH NO SIGN OF SOB. CONGESTIONS IS SLIGHTLY HEARD BUT RESPIRATIONS EVEN AND UNLABORED. PATIENT ON MONITOR NSR WITH HR 85. GTUBE FEEDING INCREASED TO 50CC/HR WITH NO RESIDUAL. BED LINENS CHANGED AND PATIENT CLEANED. IV ACCESS PATENT WITH NS INFUSNG AT 75CC/HR. FC PATENT WELL WITH YELLOW OUTPUT DRAINING. ALL SAFETY PRECAUTIONS APPLIED. WILL ENDORSE PATIENT TO MORNING SHIFT NURSE FOR MICKEY.
[2019-09-30 06:53] LABS: C-REACTIVE PROTEIN 14.9 mg/dL (0.0-0.9)
--- NOTE | 2019-09-30 07:10 | NUR ---
RN NOTES RECEIVEDP PT ON BED, PT IS A/Ox1, FOLLOWS COMMANDS , IS ABLE TO TRACE WITH EYES AND COMMUNICATED BY NODDING FOR YES OR NO. ON TELE SR HR IN 90'S , ON 2L O2 , N/C , O2 SAT WNL, G TUBE FEEDING AT 50CC/HR RUNNING WITH NO RESIDUAL.NS AT 75CC/HR RUNNING VIS R FA IV SITE G 18 , SITE CLEAN,DRY AND INTACT, PUGA DRINING TO GRAVITY, ALL SAFETY PRECAUTIONS APPLIED.SR UP x3, CALL LIGHT WITHIN EASY REACH, BED LOCKED AND IN LOWEST POSITION, CONTINUE TO MONITOR .
[2019-09-30] MEDS ORDERED: PROSTAT (PYXIS) 30 ML UDC GT SCH (09:00)
[2019-09-30] MEDS ORDERED: Medication Not On Formulary EA (Cran/Vitc/Mannose/Inulin/Brom (Uti-Stat Liquid) 30 ML) GT SCH (09:00)
[2019-09-30] MEDS: INSULIN REGULAR, HUMAN 100 UNIT/ML 3 ML VIAL SQ PRN ×3 (09:05→17:06)
[2019-09-30] MEDS: BLOOD SUGAR DIAGNOSTIC 1 EACH STRIP IN SCH (09:06)
[2019-09-30] MEDS: ENOXAPARIN SODIUM 40 MG/0.4 ML DISP.SYRIN SQ SCH ×2 (09:08→10:43)
[2019-09-30] MEDS: LISINOPRIL (10MG) 10 MG TABLET GT SCH (09:10)
[2019-09-30] MEDS: GABAPENTIN 300 MG CAPSULE GT SCH ×3 (09:11→16:32)
[2019-09-30] MEDS: ASPIRIN 81 MG TAB.CHEW GT SCH (09:11)
[2019-09-30] MEDS: ASCORBIC ACID 500 MG TABLET GT SCH (09:11)
[2019-09-30] MEDS: CHOLECALCIFEROL 1,000 UNIT TABLET (VIT D3) GT SCH (09:11)
[2019-09-30] MEDS: ZINC SULFATE 220 MG CAPSULE GT SCH (09:11)
[2019-09-30] MEDS: MULTIVITAMINS,THERAGRAN 1 UDTAB TABLET GT SCH (09:11)
[2019-09-30] MEDS: VANCOMYCIN 1 GM in IV D5W 250 ML IV SCH (09:14)
[2019-09-30] MEDS: PROSOURCE / PROSTAT (PYXIS) 30 ML UDC GT SCH (09:29)
--- NOTE | 2019-09-30 10:00 | NUR ---
RN NOTES DR GLEZ NOTIFED REGARDING PLT= 107.
[2019-09-30] MEDS: BLOOD SUGAR DIAGNOSTIC 1 EACH STRIP VI SCH ×4 (10:02→21:33)
[2019-09-30] MEDS ORDERED: GLUCERNA 1.2 1,000 ML BOTTLE NG PRN (10:30)
[2019-09-30] MEDS: IV 1/2NS 1000 ML 1,000 ML IV PRN (10:34)
--- NOTE | 2019-09-30 12:00 | NUR ---
RN NOTES NT AND SUCTIONING DONE, MODERATE AMOUNT OF BLOODY TINGED SECRETIONS SUCTIONED OUT .
[2019-09-30] MEDS: LamoTRIgine 25 MG TABLET PO SCH (12:20)
[2019-09-30] MEDS ORDERED: ENOXAPARIN SODIUM 40 MG/0.4 ML DISP.SYRIN SQ SCH (12:30)
--- NOTE | 2019-09-30 17:02 | NUR ---
follow up covid result pending.
--- NOTE | 2019-09-30 18:00 | NUR ---
RN NOTES NT AND ORAL SUCTIONING DONE NEEDED , PT ON 2L O2 N/C , O2 SAT WNL, VIVIEN DRINING TO GRAVITY, 1/2 NS AT 75CC/HR RUNNING VIA R FOREARM IV SITE , SR UP x3, CALL LIGHT WITHIN EASY REACH, BED LOCKED AND IN LOWEST POSITION, WILL ENDORSE TO CENTRAL OFFICE INSTALLER NURSE FOR CONTINUITY OF CARE.
[2019-09-30] MEDS: VANCOMYCIN 0.75 GM in IV D5W 250 ML IV SCH (20:04)
[2019-09-30] MEDS: *INSULIN REGULAR(HUMULIN R)HUM 100 UNIT/ML VIAL SQ PRN (21:15)
[2019-10-01] VITALS: BP 126/66
[2019-10-01] MEDS: IPRATROPIUM/ALBUTEROL INHALER IH SCH ×4 (00:31→19:30)
[2019-10-01] MEDS: PIPERACILLIN /TAZOBACTAM 3.375 G in IV D5W 50 ML IV SCH ×4 (00:31→19:35)
[2019-10-01] MEDS: IV 1/2NS 1000 ML 1,000 ML IV PRN ×2 (03:23→18:24)
[2019-10-01 04:00] VITALS: BP 143/61
--- NOTE | 2019-10-01 06:44 | NUR ---
RN CLOSING NOTE NO ACUTE CHANGES OBSERVED OVERNIGHT. PT IS ALERT AND ORIENTED X 1 BUT ABLE TO FOLLOW COMMANDS. IV FLUIDS RUNNING ORDERED WITHOUT COMPLICATIONS NOTED AT SITE. GT FEEDING RUNNING ORDERED. NO GASTRIC RESIDUAL NOTED. PUGA CATHETER PATENT AND IN PLACE DRAINING CLEAR YELLOW URINE. CALL LIGHT WITHIN REACH, SAFETY MEASURES IN PLACE, WILL ENDORSE TO MORNING RN FOR CONTINUATION OF CARE.
[2019-10-01 07:03] LABS: BASOPHILS % (AUTO) 0.4 % (0.0-2.0); EOSINOPHILS % (AUTO) 2.8 % (0.0-6.0); HEMATOCRIT 36 % (39-51); HEMOGLOBIN 10.9 g/dL (13.5-17.5); LYMPHOCYTES # (AUTO) 1.7 /CMM (0.8-4.8); MEAN CORPUSCULAR HGB CONC 31 g/dl (31.0-36.0); MEAN CORPUSCULAR VOLUME 78 fL (80-96); MONOCYTES # (AUTO) 0.7 /CMM (0.1-1.30); MONOCYTES % (AUTO) 7.2 % (2.0-12.0); NEUTROPHILS # (AUTO) 6.9 /CMM (1.8-8.9); NEUTROPHILS % (AUTO) 71.6 % (43.0-81.0); PLATELET COUNT (AUTO) 100 /CMM (150-450); RED BLOOD CELL COUNT(AUTO) 4.57 MIL/uL (4.5-6.0); WHITE BLOOD COUNT (AUTO) 9.7 K/uL (4.3-11.0)
[2019-10-01 07:35] LABS: CALCIUM, SERUM 8.2 mg/dL (8.5-10.1); MAGNESIUM 2.4 mg/dL (1.8-2.4); POTASSIUM 4.1 mmol/L (3.5-5.1)
--- NOTE | 2019-10-01 07:54 | NUR ---
RN OPENING NOTE Received patient asleep in bed appears calm and relaxed no signs of distress. On NC 2l tolerating well O2 sat 100%. Patient has FC draining cloudy yellow urine. Noted with Mepilex on L heel for DTI kept offload. Patient has GT feeding running Glucerna 1.2 @ 65ml/hr positive placement no residual. Has RFA #18 running 1/2 NS @ 75ml/hr. Safety measures reinforced. Bed locked and on lowest position. Will cont to monitor.
[2019-10-01 08:00] VITALS: BP_SYST 133; BP_SYST 150; BP_DIAS 70; BP_DIAS 79
[2019-10-01] MEDS: BLOOD SUGAR DIAGNOSTIC 1 EACH STRIP VI SCH ×4 (08:30→21:32)
[2019-10-01] MEDS: INSULIN REGULAR, HUMAN 100 UNIT/ML 3 ML VIAL SQ PRN ×3 (08:33→16:55)
[2019-10-01] MEDS: VANCOMYCIN 0.75 GM in IV D5W 250 ML IV SCH ×2 (08:41→20:37)
[2019-10-01 09:07] LABS: *SPE A/G RATIO 0.7 (0.7-1.7); *SPE ALBUMIN 2.4 g/dL (2.9-4.4); *SPE ALPHA-1-GLOBULIN 0.4 g/dL (0.0-0.4); *SPE GLOBULIN, TOTAL 3.6 g/dL (2.2-3.9); *SPE M-SPIKE Not Observed g/dL (Not Observed); *SPEGAMMA GLOBULIN 1.3 g/dL (0.4-1.8)
[2019-10-01] MEDS: MULTIVITAMINS,THERAGRAN 1 UDTAB TABLET GT SCH (09:10)
[2019-10-01] MEDS: ASCORBIC ACID 500 MG TABLET GT SCH (09:10)
[2019-10-01] MEDS: LISINOPRIL (10MG) 10 MG TABLET GT SCH (09:10)
[2019-10-01] MEDS: ENOXAPARIN SODIUM 40 MG/0.4 ML DISP.SYRIN SQ SCH (09:10)
[2019-10-01] MEDS: CHOLECALCIFEROL 1,000 UNIT TABLET (VIT D3) GT SCH (09:11)
[2019-10-01] MEDS: ASPIRIN 81 MG TAB.CHEW GT SCH (09:11)
[2019-10-01] MEDS: ZINC SULFATE 220 MG CAPSULE GT SCH (09:11)
[2019-10-01] MEDS: PROSOURCE / PROSTAT (PYXIS) 30 ML UDC GT SCH (09:12)
[2019-10-01] MEDS: GABAPENTIN 300 MG CAPSULE GT SCH ×3 (09:12→16:32)
[2019-10-01] MEDS: GLUCERNA 1.2 1,000 ML BOTTLE NG PRN (11:24)
[2019-10-01] MEDS ORDERED: NEUTRA PHOS 1 POWD.PACKET NG ONE (11:30)
[2019-10-01 12:00] VITALS: BP 121/70
[2019-10-01] MEDS: LamoTRIgine 25 MG TABLET PO SCH (12:11)
--- NOTE | 2019-10-01 15:03 | NUR ---
RN NOTE Pt refused sputum culture collection. Also refused to be suctioned.
[2019-10-01 16:00] VITALS: BP 99/56
--- NOTE | 2019-10-01 19:09 | NUR ---
RN CLOSING NOTE Patient in bed asleep. Calm and relaxed no signs of distress. Patient is more verbal now but more garbled speech. Accdg to son, a few days ago his father was not talking at all. Patient is removing NC. Encouraged to put it back. However O2 sat is 98-99%. Noted with productive cough. Tried several times throughout the day to suction but patient refused and tries to move my hand away. Tele reading 80s SR. On a diaper BM x2. Carreon catheter draining 950ml cloudy yellow. Cont on Glucerna 1.2 @ 65ml/hr. Insulin administered as ordered. Swab specimen for COVID collected via oropharyngeal taken to the lab still pending. Cont on antibiotic therapy tolerating well no signs of adverse reaction. Cont on fluid replacement 0.45% NS @ 75ml/hr no signs of infiltration on IV site. No co pain or discomfort. All due meds given. Kept patient clean and comfortable. Safety measures reinforced. Call light within reach. Bed locked and on lowest position. Endorsed to medical office clerk nurse for albino.
--- NOTE | 2019-10-01 19:30 | NUR ---
PRESCRIPTION BENEFIT SPECIALIST NOTES RECEIVED ON BED A/O X1,WAVE HIS HANDS WHEN CALLING HIS NAME.PRESENT IVF 1/2 NS 75ML/HR RATE INFUSING ON RIGHT FOREARM VIA IV PUMP,SITE PATENT.PUGA CATH IN PLACE DRAINING YELLOWISH OUTPUT.WITH GT FEEDING OF GLUCERNA TA 65ML/HR RATE.NOTED 5ML RESIDUAL VOLUME.HOB ELEVATED FOS ASPIRATION PRECAUTION.ISOLATION PRECAUTION FOR COVID TEST,PENDING RESULT.NOTED PRODUCTIVE COUGH,OFFERED TO SUCTION BUT REFUSED.CALL LIGHT IN REACH,NEEDS ANTICIPATED.
[2019-10-01 20:00] VITALS: BP 110/89
--- NOTE | 2019-10-01 20:45 | NUR ---
DIRECTOR OF RESTAURANT OPERATIONS NOTES PER RT,PATIENT REFUSED DEEP SUCTIONING,EVEN YANKEUR ORAL SUCTION,O2 SAT 95% ON ROOM AIR
--- NOTE | 2019-10-01 21:30 | NUR ---
BOILERMAKER NOTES ACCU-CHECK BLOOD SUGAR CHECK 313,COVERED WITH HUMULIN R 8 UNITS PER MODERATE SLIDING SCALE,GIVE SQ ON RIGHT DELTOID.GT FEEDING IN PROGRESS VIA GT PUMP AT 65ML/HR RATE.
[2019-10-01] MEDS: *INSULIN REGULAR(HUMULIN R)HUM 100 UNIT/ML VIAL SQ PRN (21:34)
[2019-10-02] VITALS: BP 133/73
--- NOTE | 2019-10-02 | NUR ---
MASTER PILOT NOTES REPORTED BY NICOLAS COLLINS,PATIENT HAS LOOSE BM THIS TIME,GT FEEDING PUT ON HOLD FOR FOR AWHILE.ILL CONTINUE TO MONITOR STATUS.
[2019-10-02] MEDS: PIPERACILLIN /TAZOBACTAM 3.375 G in IV D5W 50 ML IV SCH ×4 (01:14→20:17)
[2019-10-02] MEDS: IPRATROPIUM/ALBUTEROL INHALER IH SCH ×4 (01:30→19:30)
--- NOTE | 2019-10-02 03:00 | NUR ---
MS RN NOTES MORNING CARE RENDERED.WITH ANOTHER LOOSE BM,MODERATE IN AMOUNT AND GREENISH COLOR.CLEANED AND KEPT DRY.
[2019-10-02 04:00] VITALS: BP 125/71
[2019-10-02] MEDS: GLUCERNA 1.2 1,000 ML BOTTLE NG PRN (05:32)
--- NOTE | 2019-10-02 06:10 | NUR ---
DIRECTOR BUSINESS INTEGRATION NOTES SR-67 ON TELE MONITOR,ON BED A/O X1-2.GT FEEDING IN PROGRESS.STILL WITH ON AND OFF PRODUCTIVE COUGH.REFUSED INHALER.REFUSED TO BE SUCTION.SECOND COVID TEST NOT RESULTED YET.IN NO ACUTE DISTRESS.
[2019-10-02 06:13] LABS: BASOPHILS # (AUTO) 0.1 /CMM (0.0-0.2); BASOPHILS % (AUTO) 0.6 % (0.0-2.0); HEMATOCRIT 35 % (39-51); HEMOGLOBIN 10.8 g/dL (13.5-17.5); LYMPHOCYTES # (AUTO) 1.9 /CMM (0.8-4.8); LYMPHOCYTES % (AUTO) 19.1 % (20.0-44.0); MEAN CORPUSCULAR HGB CONC 31 g/dl (31.0-36.0); MEAN CORPUSCULAR VOLUME 78 fL (80-96); MONOCYTES # (AUTO) 0.6 /CMM (0.1-1.30); MONOCYTES % (AUTO) 6.2 % (2.0-12.0); NEUTROPHILS # (AUTO) 6.6 /CMM (1.8-8.9); NEUTROPHILS % (AUTO) 66.1 % (43.0-81.0); PLATELET COUNT (AUTO) 113 /CMM (150-450); RED BLOOD CELL COUNT(AUTO) 4.43 MIL/uL (4.5-6.0)
[2019-10-02 06:22] LABS: ALBUMIN 2.1 g/dL (3.4-5.0); BILIRUBIN,TOTAL 0.8 mg/dL (0.2-1.0); CALCIUM, SERUM 8.2 mg/dL (8.5-10.1); CREATININE 0.9 mg/dL (0.6-1.3); MAGNESIUM 2.3 mg/dL (1.8-2.4); PHOSPHORUS 2.8 mg/dL (2.5-4.9); POTASSIUM 4.3 mmol/L (3.5-5.1); TOTAL PROTEIN, SERUM 6.3 g/dL (6.4-8.2)
--- NOTE | 2019-10-02 07:20 | NUR ---
RN OPENING NOTE Received patient asleep in bed appears calm and relaxed no signs of distress. Patient is on room air tolerating well. Patient is AO x1 speaks garbled Uzbek. Tele reading 70-80s. On GT feeding Glucerna 1.2 @ 65ml/hr tolerating well. Cont on 05/01 NS @ 75ml/hr on RFA peripheral IV line. Safety measures reinforced call light within reach. Bed locked and on lowest position. Will cont to monitor.
[2019-10-02] MEDS: BLOOD SUGAR DIAGNOSTIC 1 EACH STRIP VI SCH ×5 (07:55→22:34)
[2019-10-02] MEDS: *INSULIN REGULAR(HUMULIN R)HUM 100 UNIT/ML VIAL SQ PRN (07:57)
[2019-10-02 08:00] VITALS: BP 135/69
[2019-10-02] MEDS: INSULIN REGULAR, HUMAN 100 UNIT/ML 3 ML VIAL SQ PRN ×4 (08:03→22:41)
[2019-10-02] MEDS: VANCOMYCIN 0.75 GM in IV D5W 250 ML IV SCH ×2 (08:17→20:37)
[2019-10-02] MEDS: ZINC SULFATE 220 MG CAPSULE GT SCH (08:18)
[2019-10-02] MEDS: GABAPENTIN 300 MG CAPSULE GT SCH ×3 (08:18→16:53)
[2019-10-02] MEDS: ASPIRIN 81 MG TAB.CHEW GT SCH (08:18)
[2019-10-02] MEDS: MULTIVITAMINS,THERAGRAN 1 UDTAB TABLET GT SCH (08:18)
[2019-10-02] MEDS: LISINOPRIL (10MG) 10 MG TABLET GT SCH (08:18)
[2019-10-02] MEDS: ASCORBIC ACID 500 MG TABLET GT SCH (08:18)
[2019-10-02] MEDS: CHOLECALCIFEROL 1,000 UNIT TABLET (VIT D3) GT SCH (08:18)
[2019-10-02] MEDS: PROSOURCE / PROSTAT (PYXIS) 30 ML UDC GT SCH (08:19)
[2019-10-02] MEDS: ENOXAPARIN SODIUM 40 MG/0.4 ML DISP.SYRIN SQ SCH (08:19)
--- NOTE | 2019-10-02 10:15 | NUR ---
RN NOTE Patient is noted with productive cough. Offered to suction. Patient refused 3x. Explained risk and benefits. MD aware with nno. Educated patient on cough techniques. Provided tissue to expectorate cough. Pt has poor concentration. Reinforcement needed. Will continue to monitor.
[2019-10-02 12:00] VITALS: BP_SYST 119; BP_SYST 142; BP_DIAS 64; BP_DIAS 68
[2019-10-02] MEDS: IV 1/2NS 1000 ML 1,000 ML IV PRN (12:00)
[2019-10-02] MEDS: LamoTRIgine 25 MG TABLET PO SCH (12:14)
[2019-10-02 16:00] VITALS: BP 119/68
--- NOTE | 2019-10-02 16:00 | NUR ---
RN NOTE Patient is resisting being suctioned and refusing oral care. Tried 3 times explained risk and benefits.
--- NOTE | 2019-10-02 18:34 | NUR ---
RN CLOSING NOTE Patient in bed calm and relaxed. On room air no signs of distress. RFA running 1/2 NS @ 75ml/hr. GT feeding running tolerating well. No co pain or discomfort. All due meds given. Vital signs within normal limits. Kept clean and dry. Repositioned q2h. Cont on antibiotic and swab pending. Will endorse to cage shift manager for albino.
[2019-10-02 20:00] VITALS: BP 128/69
--- NOTE | 2019-10-02 21:30 | NUR ---
BAL HAYDEN INFECTION SPECIALIST AT BEDSIDE.
--- NOTE | 2019-10-02 21:41 | NUR ---
TELE/RN RECEIVED PATIENT IN BED WITH NO SIGNS OF ANY DISTRESS. PATIENT IS ALERT ABLE TO FOLLOW COMMANDS AND NOD FOR YES OR NO. PATIENT IS NON VERBAL. NO SIGNS OF ANY SOB PATIENT ON ROOM AIR SATURATING AT 98% ON ROOM AIR. RESPIRATIONS EVEN AND UNLABORED PATIENT DOES NOT COMPLAIN OF ANY PAIN. IV SITE ON LT FOREARM PATENT AND RUNNING 1/2 NS AT 75CC/HR. GTUBE RUNNING AT 65CC/HR WITH NO RESIDUAL. PATIENT ON THE MONITOR IS NSR WITH 68HR. FC DRAINING VIA GRAVITY WITH JAKY OUTPUT NOTED. ALL SAFETY PRECAUTIONS APPLIED. WILL CONTINUE TO MONITOR PATIENT THROUGHOUT SHIFT.
[2019-10-03] VITALS: BP 139/60
[2019-10-03] MEDS: IV 1/2NS 1000 ML 1,000 ML IV PRN (01:01)
[2019-10-03] MEDS: PIPERACILLIN /TAZOBACTAM 3.375 G in IV D5W 50 ML IV SCH ×4 (01:01→19:55)
[2019-10-03] MEDS: IPRATROPIUM/ALBUTEROL INHALER IH SCH ×3 (01:30→15:13)
[2019-10-03 04:00] VITALS: BP 136/63
[2019-10-03] MEDS: GLUCERNA 1.2 1,000 ML BOTTLE NG PRN (04:56)
[2019-10-03 06:14] LABS: BASOPHILS # (AUTO) 0.1 /CMM (0.0-0.2); BASOPHILS % (AUTO) 0.6 % (0.0-2.0); HEMATOCRIT 35 % (39-51); HEMOGLOBIN 10.6 g/dL (13.5-17.5); LYMPHOCYTES # (AUTO) 1.7 /CMM (0.8-4.8); MEAN CORPUSCULAR HGB CONC 31 g/dl (31.0-36.0); MEAN CORPUSCULAR VOLUME 77 fL (80-96); MONOCYTES # (AUTO) 0.6 /CMM (0.1-1.30); MONOCYTES % (AUTO) 4.3 % (2.0-12.0); NEUTROPHILS # (AUTO) 9.6 /CMM (1.8-8.9); NEUTROPHILS % (AUTO) 73.1 % (43.0-81.0); PLATELET COUNT (AUTO) 118 /CMM (150-450); RED BLOOD CELL COUNT(AUTO) 4.48 MIL/uL (4.5-6.0); WHITE BLOOD COUNT (AUTO) 13.1 K/uL (4.3-11.0)
[2019-10-03 06:47] LABS: CALCIUM, SERUM 8.6 mg/dL (8.5-10.1); CREATININE 0.8 mg/dL (0.6-1.3); PHOSPHORUS 3.2 mg/dL (2.5-4.9); POTASSIUM 4.4 mmol/L (3.5-5.1)
--- NOTE | 2019-10-03 06:53 | NUR ---
TELE/RN PATIENT IN BED WITH NO SIGN OF ANY DISTRESS. PATIENT REMAINS ON ROOM AIR WITH NO SIGNS OF ANY SOB SATURATING AT 97%. IV ACCESS IS PATENT RUNNING WITH 1/2NS AT 75CC/HR. GTUBE FEEDDING OF GLUCERNA RUNNINGAT 65CC/HR WITH NO RESIDUAL. FC DRAINING VIA GRAVITY WITH YELLOW OUTPUT. ALL SAFETY PRECUATIONS APPLIED. WILL ENDORSE PATIENT TO MORNING SHIFT NURSE FOR MICKEY.
[2019-10-03] MEDS: BLOOD SUGAR DIAGNOSTIC 1 EACH STRIP VI SCH ×3 (07:25→17:47)
[2019-10-03] MEDS: INSULIN REGULAR, HUMAN 100 UNIT/ML 3 ML VIAL SQ PRN ×3 (07:29→17:49)
--- NOTE | 2019-10-03 07:30 | NUR ---
RN OPENING NOTE RECEIVED PATIENT FROM PM NURSE. PATIENT IS A/O X2, ON ROOM AIR SATURATING WELL. O2 SATURATION AT 97%, NO SIGNS AND SYMPTOMS OF RESPIRATORY DISTRESS NOTED. BREATHING IS EVEN AND UNLABORED. PATIENT HAS A PUGA IN PLACE, INTACT, AND DRAINING URINE. G TUBE FEEDING IS RUNNING ORDERED, PATIENT TOLERATING WELL, NO RESIDUAL NOTED. PATIENT IS RUNNING 1/2L NS AT 75CC/HR. IV SITE INTACT, PATENT, AND FLUSHED WELL. RECEIVED ORDERS TO TRANSFER PATIENT TO [address] [place] [address]. WILL TRANSFER PATIENT WHEN NURSE IS READY. SAFETY MAINTAINED, CALL LIGHT WITHIN REACH, WILL CONTINUE TO MONITOR.
[2019-10-03 08:00] VITALS: BP 155/68
--- NOTE | 2019-10-03 08:00 | NUR ---
TRAILER RENTAL CLERK NOTE TRANSFERRED PATIENT TO [facility] PER ORDERS. PATIENT REMAINED IN STABLE CONDITION. ENDORSED TO NURSE URIAS FOR CONTINUITY OF CARE. SAFETY MAINTAINED. ALL PATIENT NEEDS MET.
--- NOTE | 2019-10-03 08:20 | NUR ---
TELE/UTILITY SUPERVISOR [employer] FROM [facility] RECEIVED PATIENT FROM [facility] BY BED WITH NO SIGNS OF ANY DISTRESS. RECEIVED REPORT FROM [facility]Y ALMODOVAR RN. PATIENT IS ALERT ABLE TO FOLLOW COMMANDS AND NOD FOR YES OR NO. PATIENT IS OCCASIONALLY VERBALLY RESPONSIVE. NO SIGNS OF ANY SOB PATIENT ON ROOM AIR SATURATING AT 95% ON ROOM AIR. RESPIRATIONS EVEN AND UNLABORED PATIENT DOES NOT COMPLAIN OF ANY PAIN. OCCASIONALLY COUGHS -REFUSED TO BE SUCTIONED.IV SITE ON RT FOREARM PATENT AND RUNNING 1/2 NS AT 75CC/HR BUT DISCONTINUED BY . GTUBE RUNNING AT 65CC/HR WITH NO RESIDUAL INFUSING WELL. PATIENT ON THE MONITOR IS NSR WITH 68HR BUT DISCONTINUED WELL. FC DRAINING VIA GRAVITY WITH YELLOW JAKY URINE OUTPUT NOTED. ON SAFETY PRECAUTIONS. WILL CONTINUE TO MONITOR PATIENT. CALL LIGHT PLACED WITHIN REACH.
[2019-10-03] MEDS: VANCOMYCIN 0.75 GM in IV D5W 250 ML IV SCH ×2 (08:45→20:49)
[2019-10-03] MEDS: GABAPENTIN 300 MG CAPSULE GT SCH ×3 (10:04→17:56)
[2019-10-03] MEDS: ASCORBIC ACID 500 MG TABLET GT SCH (10:04)
[2019-10-03] MEDS: PROSOURCE / PROSTAT (PYXIS) 30 ML UDC GT SCH (10:04)
[2019-10-03] MEDS: ASPIRIN 81 MG TAB.CHEW GT SCH (10:04)
[2019-10-03] MEDS: ZINC SULFATE 220 MG CAPSULE GT SCH (10:04)
[2019-10-03] MEDS: CHOLECALCIFEROL 1,000 UNIT TABLET (VIT D3) GT SCH (10:04)
[2019-10-03] MEDS: MULTIVITAMINS,THERAGRAN 1 UDTAB TABLET GT SCH (10:05)
[2019-10-03] MEDS: LISINOPRIL (10MG) 10 MG TABLET GT SCH (10:05)
[2019-10-03] MEDS: ENOXAPARIN SODIUM 40 MG/0.4 ML DISP.SYRIN SQ SCH (10:06)
[2019-10-03] MEDS: LamoTRIgine 25 MG TABLET PO SCH (12:54)
[2019-10-03] MEDS ORDERED: PIPE3.376 IV (15:54)
[2019-10-03] MEDS ORDERED: Ipratropium/Albuterol Sulfate IH (15:54)
[2019-10-03] MEDS ORDERED: VANC750F2 IV (15:54)
[2019-10-03 16:00] VITALS: BP 133/70
[2019-10-03] MEDS ORDERED: DEXTROSE 50%-WATER 50 ML DISP.SYRIN IV PRN (18:00)
--- NOTE | 2019-10-03 19:30 | NUR ---
RN OPENING NOTE Received patient in bed awake and alert. No apparent distress noted. Patient is on room air tolerating well. Patient is AOx1 speaks garbled [place]. On GT feeding Glucerna 1.2 @65ml/hr tolerating well. Cont on 05/01 NS @ 75ml/hr on RFA peripheral IV line. Carreon catheter patent and intact draining well. Safety measures reinforced call light within reach. Bed locked and on lowest position. Will cont to monitor.
[2019-10-03 20:00] VITALS: BP 121/74
[2019-10-04] MEDS: BLOOD SUGAR DIAGNOSTIC 1 EACH STRIP VI SCH ×3 (00:38→11:39)
[2019-10-04] MEDS: INSULIN REGULAR, HUMAN 100 UNIT/ML 3 ML VIAL SQ PRN ×3 (00:44→11:47)
[2019-10-04] MEDS: PIPERACILLIN /TAZOBACTAM 3.375 G in IV D5W 50 ML IV SCH ×2 (01:34→07:43)
[2019-10-04] MEDS: IPRATROPIUM/ALBUTEROL INHALER IH SCH ×3 (01:59→07:35)
[2019-10-04 02:08] VITALS: BP 121/74
[2019-10-04] MEDS: GLUCERNA 1.2 1,000 ML BOTTLE NG PRN (02:53)
--- NOTE | 2019-10-04 06:38 | NUR ---
RN CLOSING NOTE Patient in bed awake and alert. On room air no signs of distress. RFA #22 patent and intact. GTF feeding intact and tolerating well. No co pain or discomfort. All due meds given. Vital signs within normal limits. Kept clean and dry. Repositioned q2h. Safety precautions in place. Will endorse to the day shift nurse for continuity of care.
[2019-10-04 08:00] VITALS: BP 137/73
--- NOTE | 2019-10-04 08:00 | NUR ---
MS RN OPENING NOTES RECEIVED PATIENT IN BED, AWAKE, RESPOND ONLY TO VERBAL COMMANDS, BREATHING AT ROOM AIR, UNLABORED BREATHING, RFA #22, G TUBE FEEDING GLUCERNA 1.2 @65ML/HR, PUGA CATH ATTACHED WITH YELLOWISH COLORED URINE, SIDE RAILS UP.
[2019-10-04] MEDS: GABAPENTIN 300 MG CAPSULE GT SCH (08:11)
[2019-10-04 08:12] VITALS: BP 137/73
[2019-10-04] MEDS: LISINOPRIL (10MG) 10 MG TABLET GT SCH (08:12)
[2019-10-04] MEDS: ASPIRIN 81 MG TAB.CHEW GT SCH (08:12)
[2019-10-04] MEDS: ZINC SULFATE 220 MG CAPSULE GT SCH (08:12)
[2019-10-04] MEDS: CHOLECALCIFEROL 1,000 UNIT TABLET (VIT D3) GT SCH (08:12)
[2019-10-04] MEDS: MULTIVITAMINS,THERAGRAN 1 UDTAB TABLET GT SCH (08:12)
[2019-10-04] MEDS: ASCORBIC ACID 500 MG TABLET GT SCH (08:12)
[2019-10-04] MEDS: ENOXAPARIN SODIUM 40 MG/0.4 ML DISP.SYRIN SQ SCH (08:14)
[2019-10-04] MEDS: PROSOURCE / PROSTAT (PYXIS) 30 ML UDC GT SCH (08:28)
[2019-10-04 08:43] LABS: CALCIUM, SERUM 8.9 mg/dL (8.5-10.1); CREATININE 0.9 mg/dL (0.6-1.3)
[2019-10-04] MEDS: VANCOMYCIN 0.75 GM in IV D5W 250 ML IV SCH (08:50)
--- NOTE | 2019-10-04 13:50 | NUR ---
MS RN CLOSING NOTES DISCHARGED PATIENT IN A STRETCHER, AWAKE, RESPOND TO VERBAL COMMANDS, BREATHING AT ROOM AIR, UNLABORED BREATHING, NO SIGNS OF RESPIRATORY DISTRESS, PUGA CATH REMOVED, ENDORSED PATIENT TO [facility] NURSE.
== END 2019-10-04 13:45 | DRG 871 ==
LOC: ER 10:10 → TELE1 12:55 → TELE-TD 16:43 → TELE1 09-30 09:31 → TELE 10-03 08:04 → MED 10-03 08:17
PROVIDERS: ADMIT Nurse Practitioner Acute Care; ATTEND Nurse Practitioner Acute Care
DX: A41.89 Other specified sepsis (principal); E43 Unspecified severe protein-calorie malnutrition; J96.01 Acute respiratory failure with hypoxia; J12.89 Other viral pneumonia; G92 Toxic encephalopathy; U07.1 COVID-19; N17.0 Acute kidney failure with tubular necrosis; E87.0 Hyperosmolality and hypernatremia; N39.0 Urinary tract infection, site not specified; J98.11 Atelectasis; E87.2 Acidosis; R65.20 Severe sepsis without septic shock; D50.9 Iron deficiency anemia, unspecified; Z93.1 Gastrostomy status; G30.9 Alzheimer's disease, unspecified; F02.80 Dementia in other diseases classified elsewhere, unspecified severity, without behavioral disturbance, psychotic disturbance, mood disturbance, and anxiety; E11.65 Type 2 diabetes mellitus with hyperglycemia; D69.6 Thrombocytopenia, unspecified; E11.42 Type 2 diabetes mellitus with diabetic polyneuropathy; E78.5 Hyperlipidemia, unspecified; E86.0 Dehydration; E86.1 Hypovolemia; Z79.4 Long term (current) use of insulin; K21.9 Gastro-esophageal reflux disease without esophagitis; Z79.84 Long term (current) use of oral hypoglycemic drugs; Z79.899 Other long term (current) drug therapy; Z79.82 Long term (current) use of aspirin; I10 Essential (primary) hypertension; F09 Unspecified mental disorder due to known physiological condition; M62.40 Contracture of muscle, unspecified site; I70.0 Atherosclerosis of aorta
CPT/HCPCS: 36415; 36600; 71045-TC; 80048-TC; 80053-TC; 80061-TC; 80202-TC; 81000-TC; 82248-TC; 82550-TC; 82728-TC; 82962-TC; 83605-TC; 83615-TC; 83735-TC; 83880; 84100-TC; 84155; 84165; 84443-TC; 84484-TC; 85025-TC; 85378-TC; 85385-TC; 85730-TC; 86140-TC; 87040-TC; 87081-TC; 87086-TC; 93307-TC; G0378; J1650; J1815; J2543; J3370; J3490; J7030; J7040; J7050; J7060; U0003-CS

== ENCOUNTER 2019-10-21 10:16 | Inpatient (IN) | payer MEDICARE, OTHER ==
[2019-10-21] VITALS (28 sets, daily range): BP systolic 37–153; BP diastolic 24–90
[~2019-10-21] VITALS: Ht 175.3 cm; Wt 66.2 kg
[~2019-10-21 10:16] MED LIST changes: -ACET-868 GT; -AMIN30LI27 GT; +AMIN887L GT; +ASCO500T20 GT; +CRAN3875 GT; +ERGO400C GT; -FAMO-131 GT; -INSU100V3 SQ; +Ipratropium/Albuterol Sulfate IH; +METF-442 GT; +MULT-447 GT; +PIPE3.376 IV; +POLY17PO4 GT; -SIMV20TA2 GT; +VANC750F2 IV; +ZINC220C6 GT
--- NOTE | 2019-10-21 10:20 | NUR ---
PT BIB [facility] C/O SOB AND FEVER, PT IS AAOX0, NOT IN RESPIRATORY DISTRESS, HOOKED TO O2 VIA FACE MASK AND METAL TEMPLATE MAKER, KEPT RESTED AND COMFORTABLE, WILL CONTINUE TO MONITOR.
[2019-10-21] MEDS ORDERED: VANCOMYCIN 1 GM in IV D5W 250 ML IV ONE (10:30)
[2019-10-21] MEDS ORDERED: CEFEPIME 1 GM in IV D5W 50 ML IV ONE (10:30)
[2019-10-21] MEDS ORDERED: ACETAMINOPHEN 650 MG/SUPP.RECT RC ONE (10:30)
--- NOTE | 2019-10-21 10:30 | NUR ---
IV LINE ESTABLISHED BLOOD DRAWN AND SENT TO LAB.
--- NOTE | 2019-10-21 10:35 | NUR ---
PT URINE SPECIMEN COLLECTED AND SENT TO LAB.
[2019-10-21 10:48] LABS: EOSINOPHILS % (AUTO) 0.6 % (0.0-6.0); HEMATOCRIT 45 % (39-51); HEMOGLOBIN 12.7 g/dL (13.5-17.5); LYMPHOCYTES % (AUTO) 10.8 % (20.0-44.0); MEAN CORPUSCULAR HGB CONC 28 g/dl (31.0-36.0); MEAN CORPUSCULAR VOLUME 84 fL (80-96); MONOCYTES # (AUTO) 0.9 /CMM (0.1-1.30); MONOCYTES % (AUTO) 4.6 % (2.0-12.0); NEUTROPHILS # (AUTO) 15.7 /CMM (1.8-8.9); PLATELET COUNT (AUTO) 161 /CMM (150-450); RED BLOOD CELL COUNT(AUTO) 5.41 MIL/uL (4.5-6.0); WHITE BLOOD COUNT (AUTO) 18.7 K/uL (4.3-11.0)
[2019-10-21 10:52] LABS: APPEARANCE,URINE Clear (CLEAR); BILIRUBIN,URINE Negative (NEGATIVE); BLOOD, URINE Negative Ery/uL (NEGATIVE); COLOR,URINE Yellow (YELLOW); KETONES,URINE Negative (NEGATIVE); LEUKOCYTE ESTERASE ,URINE Negative (NEGATIVE); NITRITE, URINE Negative (NEGATIVE); PROTEIN,URINE 30 mg/dl (NEGATIVE); UGLUCOSE >=1000 mg/dL (NEGATIVE); UROBILINOGEN,URINE 0.2 EU/dL (0.2)
[2019-10-21 10:53] LABS: BACTERIA,URINE Rare /HPF (None Seen); RBC,URINE 0-2 /HPF (0-2); WBC,URINE 0-2 /HPF (0-3)
[2019-10-21 10:54] LABS: HYALINE CASTS, URINE Few /LPF (None Seen); SQUAMOUS EPITHELIAL CELL,UR Rare /HPF (None Seen)
[2019-10-21] MEDS ORDERED: NUT.237L25 GT (10:55)
[2019-10-21] MEDS ORDERED: ACET-2605 GT (10:55)
[2019-10-21] MEDS ORDERED: INSU100V27 SQ (10:55)
[2019-10-21] MEDS ORDERED: BLOO-668 IN (10:55)
[2019-10-21] MEDS ORDERED: ACET-868 GT (10:55)
[2019-10-21] MEDS ORDERED: MULT-1275 GT (10:55)
[2019-10-21] MEDS ORDERED: SENN-261 GT (10:55)
[2019-10-21] MEDS ORDERED: PIPE3.376 IV (10:55)
[2019-10-21] MEDS ORDERED: SIMV-46 GT (10:55)
[2019-10-21] MEDS ORDERED: CHOL400C8 GT (10:55)
[2019-10-21 11:04] LABS: POTASSIUM 4.5 mmol/L (3.5-5.1)
[2019-10-21 11:05] LABS: CARBON DIOXIDE 32 mmol/L (21-32)
[2019-10-21 11:06] LABS: CALCIUM, SERUM 10.1 mg/dL (8.5-10.1); UREA NITROGEN, BLOOD 73 mg/dL (7-18)
[2019-10-21 11:08] LABS: CHLORIDE 127 mmol/L (98-107); SODIUM SERUM 168 mmol/L (136-145)
[2019-10-21 11:11] LABS: ALANINE AMINOTRANSFERASE 26 U/L (12-78); ALKALINE PHOSPHATASE 100 U/L (46-116); ASPARTATE AMINOTRANSFERASE 13 U/L (15-37); BILIRUBIN,TOTAL 0.3 mg/dL (0.2-1.0)
[2019-10-21 11:12] LABS: ALBUMIN 2.6 g/dL (3.4-5.0); TOTAL PROTEIN, SERUM 8.2 g/dL (6.4-8.2)
[2019-10-21 11:19] LABS: GLUCOSE 737 mg/dL (74-106)
[2019-10-21] MEDS ORDERED: IV NS 0.9% 1,000 ML BAG IV ONE (11:30)
[2019-10-21 11:32] LABS: B-TYPE NATRIURETIC PEPTIDE 270 PG/ML (0-125)
--- NOTE | 2019-10-21 11:57 | NUR ---
INTUBATION DONE BY . ET SIZE 7, 25 AT THE LIP, +COLOR CHANGED.
--- NOTE | 2019-10-21 12:00 | NUR ---
RT INTUBATED PT WITH 7.0 24CM [address] LIP [address] ON [facility] VENT SECURED TUBE AC 16 500 60% +5 SX THICK YELLOW SECRETION, EQUAL BILATERAL BREATH SOUNDS WILL CONT TO MONITOR PENDING CHEST XRAY FOR TUBE PLACEMENT Addendum: 10/21/19 at 1243 by PHILLIP BALDERAS RT Amended: Links added.
[2019-10-21] MEDS ORDERED: NOREPINEPHRINE 8 MG in IV D5W 500 ML IV ONE (12:30)
[2019-10-21] MEDS ORDERED: NOREPINEPHRINE 8 MG in IV NS 0.9% 242 ML IV PRN ×3 (12:30→17:30)
[2019-10-21] MEDS ORDERED: MISCELLANEOUS MED 1 EA EA XX ONE (12:30)
[2019-10-21 12:59] LABS: CREATINE KINASE, TOTAL 105 U/L (39-308); FERRITIN 161 ng/mL (8-388)
[2019-10-21 13:00] LABS: C-REACTIVE PROTEIN 13.2 mg/dL (0.0-0.9)
[2019-10-21] MEDS ORDERED: PROPOFOL 100 ML ONE (13:31)
[2019-10-21 13:36] LABS: D-DIMER 1.93 mg/L(FEU (0.17-0.50)
[2019-10-21 13:39] LABS: BILIRUBIN,DIRECT 0.1 mg/dL (0.0-0.2)
[2019-10-21 13:55] LABS: ABG BASE EXCESS -4.9 mmol/L; ABG OXYGEN SATURATION 98.5 % (92.0-98.5); ABG PCO2 59.1 mmHg (35.0-45.0); ABG PH 7.217 (7.350-7.450); ABG PO2 170.3 mmHg (75.0-100.0); AaDO2 192.5 mmHg; COHb 0.4 % (0.5-1.5); MetHb 0.3 % (0.0-1.5); O2Hb 97.8 % (94.0-97.0); SITE, ABG Right Radial; VENT MODE, BG AC 16 500 60% +5
--- NOTE | 2019-10-21 14:54 | NUR ---
report given to Esther COLLINS for albino.
--- NOTE | 2019-10-21 15:36 | NUR ---
wheeled patient via gurney accompanied by RT EMT and RN. Esther RN at bedside to assume care.
[2019-10-21] MEDS ORDERED: NOREPINEPHRINE 16 MG in IV NS 0.9% 242 ML IV PRN (16:00)
[2019-10-21] MEDS ORDERED: NOREPINEPHRINE 16 MG in IV D5W 500 ML IV PRN (16:30)
[2019-10-21] MEDS ORDERED: NOREPINEPHRINE 32 MG in IV NS 0.9% 218 ML IV PRN ×2 (16:30→17:30)
[2019-10-21] MEDS ORDERED: HYDROCORTISONE SOD SUCCINATE 100 MG/2 ML VIAL IV SCH (17:00)
[2019-10-21] MEDS: IV NS 0.9% 1,000 ML IV PRN ×2 (17:12→22:18)
[2019-10-21] MEDS ORDERED: IV NS 0.9% 1,000 ML IV PRN ×2 (17:13→17:30)
[2019-10-21] MEDS ORDERED: Z GUARD REMEDY 2 OZ OINT TP PRN (17:30)
[2019-10-21] MEDS ORDERED: CEFEPIME 1 GM in IV NS 0.9% 50 ML IV SCH (17:30)
[2019-10-21] MEDS ORDERED: MORPHINE SULFATE INJ 2 MG/ML DISP.SYRIN IV PRN (17:30)
[2019-10-21] MEDS ORDERED: ONDANSETRON HCL/PF 4 MG/2 ML VIAL IVP PRN (17:30)
[2019-10-21] MEDS ORDERED: INSULIN REGULAR, HUMAN 100 UNIT in IV NS 0.9% 99 ML IV PRN ×2 (17:30)
[2019-10-21] MEDS ORDERED: FEE PK DOSING 1 MIN EA MC ONE (17:55)
[2019-10-21] MEDS: IPRATROPIUM BROMIDE 14 GM INHALER (or 12.9 GM) IH SCH (18:00)
[2019-10-21] MEDS ORDERED: PROPOFOL 10MG/ML 50ML 50 ML IV PRN (19:00)
[2019-10-21] MEDS ORDERED: ACETAMINOPHEN 650 MG/SUPP.RECT RC PRN (19:30)
--- NOTE | 2019-10-21 19:48 | NUR ---
ICU/RN: patient was received from ER, ETT to the [facility] vent on AC mode as ordered. Pt is sedated with Propofol at 5 mcg/kg/min, adequately sedated. Pt was also received on Levophed at 1 mcg/kg/min SBP 80-120's, was able to titrate down to 0.8 mcg/kg/min with NS at 200 cc/hr. Serum glucose was 700+ non DKA insulin drip protocol was ordered, not available yet at this time. Fingerstick was 437 at 1900. Carreon is patent and intact. Gave report to night warehouse selector RN Addendum: 10/21/19 at 1953 by MARÍA ELENA MARINA RN GT is patent and intact, clamped at this time. DVT bilat LE pump initiated.
[2019-10-21] MEDS: BLOOD SUGAR DIAGNOSTIC 1 EACH STRIP IN SCH ×4 (20:40→23:44)
[2019-10-21] MEDS ORDERED: ETOMIDATE 2 MG/ML VIAL IV ONE (20:48)
[2019-10-21] MEDS ORDERED: SUCCINYLCHOLINE CHLORIDE 20 MG/ML VIAL IV ONE (20:48)
[2019-10-21] MEDS ORDERED: FEE EMEERGENCY 1 MIN EA MC ONE (20:48)
[2019-10-21] MEDS ORDERED: ENOXAPARIN SODIUM 30 MG/0.3 ML DISP.SYRIN SQ SCH (21:00)
[2019-10-21] MEDS ORDERED: ENOXAPARIN SODIUM 40 MG/0.4 ML DISP.SYRIN SQ SCH (21:00)
--- NOTE | 2019-10-21 21:30 | NUR ---
STOCKROOM ASSOCIATE: REASSESSED AFTER GIVEN TYLENOL SUPP. FOR FEVER WT RECTAL TEMP AT 101.4. CONTINUE COOLING MEASURES. IN AND OUT OF A. FIB ON BRIGADIER. PT REMAINS SEDATED ON DIPRIVAN DRIP AT 0.5MCG/KG/MIN, LEVOPHED AT 0.5MCG/KG/MIN, NS AT 200ML/HR AND INSULIN DRIP AT 6.6U/HR. GT CLAMPED; F/C PATENT AND INTACT DRAINING LARGE AMT. OF YELLOW URINE TO GRAVITY. HOB AT 30 DEGREES. BED IN LOWEST POSITION AND LOCKED, SIDE RAILS UP X2, BED ALARM ACTIVATED. WILL CONTINUE TO MONITOR.
[2019-10-21] MEDS ORDERED: CEFEPIME 2 GM in IV D5W 100 ML IV SCH (23:00)
[2019-10-22] VITALS (21 sets, daily range): BP systolic 52–132; BP diastolic 21–80
[2019-10-22] MEDS: IPRATROPIUM BROMIDE 14 GM INHALER (or 12.9 GM) IH SCH
[2019-10-22] MEDS: BLOOD SUGAR DIAGNOSTIC 1 EACH STRIP IN SCH ×5 (00:43→04:31)
--- NOTE | 2019-10-22 03:00 | NUR ---
BAND NAILER: TEMP. NOW IMPROVING AT 100.1. CONTINUE COOLING MEASURES. REMAINS SR ON MONITOR. WILL CONTINUE TO MONITOR.
[2019-10-22] MEDS: IV NS 0.9% 1,000 ML IV PRN (03:09)
[2019-10-22 04:21] LABS: BASOPHILS # (AUTO) 0.1 /CMM (0.0-0.2); BASOPHILS % (AUTO) 0.3 % (0.0-2.0); EOSINOPHILS % (AUTO) 0.3 % (0.0-6.0); HEMATOCRIT 37 % (39-51); HEMOGLOBIN 10.9 g/dL (13.5-17.5); LYMPHOCYTES % (AUTO) 17.7 % (20.0-44.0); MEAN CORPUSCULAR HGB CONC 30 g/dl (31.0-36.0); MEAN CORPUSCULAR VOLUME 80 fL (80-96); MONOCYTES # (AUTO) 0.9 /CMM (0.1-1.30); MONOCYTES % (AUTO) 5.2 % (2.0-12.0); NEUTROPHILS # (AUTO) 12.8 /CMM (1.8-8.9); NEUTROPHILS % (AUTO) 76.5 % (43.0-81.0); PLATELET COUNT (AUTO) 115 /CMM (150-450); RED BLOOD CELL COUNT(AUTO) 4.58 MIL/uL (4.5-6.0); WHITE BLOOD COUNT (AUTO) 16.7 K/uL (4.3-11.0)
--- NOTE | 2019-10-22 04:22 | NUR ---
WELDER ASSISTANT: PRIMARY NURSE AT BEDSIDE AND NOTED BED SIDE MONITOR TO SUDDEN SVT WT HR 229 AND CONFIRMED FROM [facility]. CALLED FOR STAT EKG. PT THEN SUDDENLY NOTED TO BE V-TACH SUSTAINING ON NECK FITTER AND BECAME UNRESPONSIVE. MARÍA ELENA SHARPE CALLED, CPR INITIATED. SEE CODE BLUE SHEET.
--- NOTE | 2019-10-22 04:36 | NUR ---
DEAF/HARD OF HEARING SPECIALIST: DR. VARGHESE AT BEDSIDE AND PRONOUNCED PT AT THIS TIME. SON FLIP ON THE PHONE SINCE THE BEGINNING OF THE CODE AND MADE AWARE OF PT'S PASSING. CHECKER STOCKER GALILEO MADE AWARE. DWIGHT ATTENDING .
[2019-10-22 04:53] LABS: CHOLESTEROL 137 mg/dL (<200); CREATINE KINASE, TOTAL 131 U/L (39-308); HDL CHOLESTEROL 37 mg/dL (40-60); LDL 70 mg/dL (0-99); THYROID STIMULATING HORMONE 0.352 uIU/mL (0.358-3.74); TRIGLYCERIDES 246 mg/dL (30-150)
[2019-10-22 04:57] LABS: ALANINE AMINOTRANSFERASE 23 U/L (12-78); ALBUMIN 2.1 g/dL (3.4-5.0); ALKALINE PHOSPHATASE 73 U/L (46-116); ASPARTATE AMINOTRANSFERASE 21 U/L (15-37); BILIRUBIN,TOTAL 0.5 mg/dL (0.2-1.0); CALCIUM, SERUM 8.1 mg/dL (8.5-10.1); CARBON DIOXIDE 26 mmol/L (21-32); CREATININE 1.6 mg/dL (0.6-1.3); GLUCOSE 260 mg/dL (74-106); MAGNESIUM 2.4 mg/dL (1.8-2.4); TOTAL PROTEIN, SERUM 6.7 g/dL (6.4-8.2); UREA NITROGEN, BLOOD 56 mg/dL (7-18)
[2019-10-22 05:05] LABS: SODIUM SERUM 173 mmol/L (136-145)
[2019-10-22 05:06] LABS: CHLORIDE 135 mmol/L (98-107); POTASSIUM 2.5 mmol/L (3.5-5.1)
[2019-10-22 05:07] LABS: PHOSPHORUS 0.8 mg/dL (2.5-4.9)
[2019-10-22 05:18] LABS: CREATININE, URINE 37.5 MG/DL (30.0-125.0); URINE TOTAL PROTEIN 85.5 mg/dL (0-11.9)
[2019-10-22 05:19] LABS: APPEARANCE,URINE CLOUDY (CLEAR); BILIRUBIN,URINE NEGATIVE (NEGATIVE); BLOOD, URINE MODERATE Ery/uL (NEGATIVE); COLOR,URINE YELLOW (YELLOW); KETONES,URINE NEGATIVE (NEGATIVE); LEUKOCYTE ESTERASE ,URINE NEGATIVE (NEGATIVE); NITRITE, URINE NEGATIVE (NEGATIVE); PH,URINE 5.5 (5.0-8.0); PROTEIN,URINE 30 mg/dl (NEGATIVE); UGLUCOSE NEGATIVE (NEGATIVE); UROBILINOGEN,URINE 0.2 EU/dL (0.2)
[2019-10-22 05:26] LABS: BACTERIA,URINE Moderate /HPF (None Seen); SQUAMOUS EPITHELIAL CELL,UR Rare /HPF (None Seen); YEAST,URINE Few /HPF (None Seen)
[2019-10-22 05:29] LABS: FINE GRANULAR CASTS,URINE Few /LPF (None Seen)
[2019-10-22 05:55] LABS: EOSINOPHIL,URINE None Seen
--- NOTE | 2019-10-22 06:00 | NUR ---
AUTOCAD ELECTRICAL DESIGNER: ELIANA CASTELAN AT BED SIDE AT 0600. POST MORTEM CARE DONE. 0520 - CALLED [facility] AND SPOKE TO ADONAY ([phone]) AND FAXED CONSENT TO RELEASE BODY; SAID THEY WILL BE HERE BEFORE [phone] - GINA Colby FROM ADMITTING & DR. CAMARGO MADE AWARE OF PT EXPIRATION 0505 - [employer] CALLED AND REPORTED TO BREANNA AND SAID OK TO RELEASE BODY 0500 - CALLED [facility] AND SPOKE TO RACHAEL AND SAID OK TO RELEASE THE BODY; REFERENCE NUMBER [id number]
--- NOTE | 2019-10-22 06:00 | NUR ---
per charge nurse Caridad, remove ETT tube, clarified with charge nurse that patient is no longer a corner case
[2019-10-22] MEDS ORDERED: PANTOPRAZOLE 40 MG VIAL IV SCH (09:00)
[2019-10-22] MEDS ORDERED: EPINEPHRINE (1:10,000) SYRINGE 1 MG/10 ML DISP.SYRIN IVP ONE (11:42)
[2019-10-22] MEDS ORDERED: VANCOMYCIN 1 GM in IV D5W 250 ML IV SCH (12:00)
[2019-10-23 13:17] LABS: PTH, INTACT 35 pg/mL (15-65)
[2019-10-23 14:22] LABS: *SPE A/G RATIO 0.6 (0.7-1.7); *SPE ALBUMIN 2.3 g/dL (2.9-4.4); *SPE ALPHA-1-GLOBULIN 0.4 g/dL (0.0-0.4); *SPE ALPHA-2-GLOBULIN 1.1 g/dL (0.4-1.0); *SPE GLOBULIN, TOTAL 3.7 g/dL (2.2-3.9); *SPE M-SPIKE Not Observed g/dL (Not Observed); *SPEGAMMA GLOBULIN 1.3 g/dL (0.4-1.8)
== END 2019-10-22 07:00 | disposition expired | DRG 871 ==
LOC: ER 10:19 → ICU 13:40
PROVIDERS: ADMIT Nurse Practitioner Acute Care; ATTEND Internal Medicine
PROC: 06HY33Z Insertion of Infusion Device into Lower Vein, Percutaneous Approach (ICD-10-PCS; principal; 2019-10-21)
PROC: 5A1935Z Respiratory Ventilation, Less than 24 Consecutive Hours (ICD-10-PCS; 2019-10-21)
PROC: 0BH17EZ Insertion of Endotracheal Airway into Trachea, Via Natural or Artificial Opening (ICD-10-PCS; 2019-10-21)
DX: A41.9 Sepsis, unspecified organism (principal); E11.00 Type 2 diabetes mellitus with hyperosmolarity without nonketotic hyperglycemic-hyperosmolar coma (NKHHC); J96.02 Acute respiratory failure with hypercapnia; N17.0 Acute kidney failure with tubular necrosis; R53.2 Functional quadriplegia; J15.6 Pneumonia due to other Gram-negative bacteria; G92 Toxic encephalopathy; J96.01 Acute respiratory failure with hypoxia; R65.21 Severe sepsis with septic shock; E87.2 Acidosis; D68.9 Coagulation defect, unspecified; E87.0 Hyperosmolality and hypernatremia; I69.854 Hemiplegia and hemiparesis following other cerebrovascular disease affecting left non-dominant side; J44.0 Chronic obstructive pulmonary disease with (acute) lower respiratory infection; I13.0 Hypertensive heart and chronic kidney disease with heart failure and stage 1 through stage 4 chronic kidney disease, or unspecified chronic kidney disease; G30.9 Alzheimer's disease, unspecified; F02.80 Dementia in other diseases classified elsewhere, unspecified severity, without behavioral disturbance, psychotic disturbance, mood disturbance, and anxiety; K21.9 Gastro-esophageal reflux disease without esophagitis; Z93.1 Gastrostomy status; I25.10 Atherosclerotic heart disease of native coronary artery without angina pectoris; G40.909 Epilepsy, unspecified, not intractable, without status epilepticus; E78.5 Hyperlipidemia, unspecified; E11.42 Type 2 diabetes mellitus with diabetic polyneuropathy; E86.0 Dehydration; E11.65 Type 2 diabetes mellitus with hyperglycemia; E11.22 Type 2 diabetes mellitus with diabetic chronic kidney disease; I49.9 Cardiac arrhythmia, unspecified; R13.10 Dysphagia, unspecified; F09 Unspecified mental disorder due to known physiological condition; N18.9 Chronic kidney disease, unspecified; I50.9 Heart failure, unspecified; L89.90 Pressure ulcer of unspecified site, unspecified stage
CPT/HCPCS: 31720; 36415; 36600; 71045-TC; 80053-TC; 80061-TC; 81000-TC; 82248-TC; 82533; 82550-TC; 82570-TC; 82728-TC; 82803-TC; 82962-TC; 83605-TC; 83615-TC; 83735-TC; 83880; 83970; 84100-TC; 84155; 84155-TC; 84165; 84300-TC; 84443-TC; 84484-TC; 85025-TC; 85378-TC; 85730-TC; 86140-TC; 87040-TC; 87070-TC; 87081-TC; 87086-TC; 87186-TC; 94002-TC; 94003-TC; 94762-TC; A4216; C1751; G0378; J0171; J0330; J0692; J1650; J1720; J1815; J3370; J3490; J7030; J7050; J7060; U0003-CS